=== PATIENT | female | born 1940 | race Caucasian/White ===

== ENCOUNTER 2019-07-03 18:12 | Emergency (ER) | payer OTHER, BC ==
[~2019-07-03] VITALS: Ht 167.6 cm; Wt 89.8 kg
--- NOTE | ~2019-07-03 | EKG ---
[place] [address] [facility] [place] [address] ELECTROCARDIOGRAM REPORT Name: TACO RED Room #: [facility].#: [id number] Admission: Attend Phys: Discharge: Date of : 40 Report #: [id number] THIS REPORT FOR: //name// [facility] ED Test Date: 2019-07-03 Test Time: 18:18:55 Pat Name: TACOJt RED Department: Room: Gender: F Packaging Associate: RONAK : 1940 Requested By: Ivan Morales Order Number: [id number] MD: Measurements Intervals [place] Rate: 98 P: 30 PA: 199 QRS: 6 QRSD: 94 T: -58 QT: 338 QTc: 432 Interpretive Statements Sinus rhythm Anterior infarct, old Minimal ST depression, lateral leads Compared to ECG 12/13/2014 11:25:35 ST (T wave) deviation now present Left ventricular hypertrophy no longer present Myocardial infarct finding still present [email or web address] By: 1818 1818 Epiphany Epiphany, /EPI
[~2019-07-03 18:12] MED LIST: ACTOS 45 MG45 M1 PO; ASPIRIN325 PO; BENTYL 10 MG CA10 MG PO; DIABETA 5MG TABL5 MG PO; DIAZEPAM 5 MG5 M1 PO; DIOVAN HCT 1601 EAC1 PO; FELODIPINE ER10 MG PO; HUMALOG100 UNIT/1 SUBQ; HYDROCODONE-AP1 EAC6 PO; KEFLEX500 MG PO; LANTUS SC; LIPITOR20 MG PO; MEDROLDOSEPACK PO; MIRALAX17 GM PO; MULTIVITAMINS PO; NORCO 5-325 TA1 EACH PO; PLAVIX 75 MG TA75 MG PO; PLENDIL10 MG PO; PREDNISONE 10 M10 MG PO; PREDNISONE 20 M20 MG PO; PREDNISONE50 MG PO; REQUIP OR; REQUIP5 MG PO; ROPINIROLE HCL2 M1 PO; TRAMADOL HCL200 MG PO; TYLENOL325 MG PO; WELLBUTRIN SR150 MG PO; ZETIA10 MG PO
[2019-07-03] MEDS ORDERED: VASCEPA1 GM PO (18:24)
[2019-07-03] MEDS ORDERED: BUPROPION HCL100 MG PO (18:24)
[2019-07-03] MEDS ORDERED: NORVASC 2.5 MG2.5 M1 PO (18:25)
[2019-07-03] MEDS ORDERED: ROPINIROLE HCL4 MG PO (18:26)
[2019-07-03] MEDS ORDERED: BENTYL 10 MG CA10 MG PO (18:28)
[2019-07-03] MEDS ORDERED: LISINOPRIL2.5 MG PO (18:30)
[2019-07-03 19:10] LABS: ABSOLUTE NEUTROPHILS 7.1 thou/uL (1.4-8.2); BASOPHILS 1.4 % (0.0-2.0); HEMATOCRIT 42.8 % (37.0-47.0); LYMPHOCYTES 21.2 % (24.0-44.0); MCH 30.1 pg (26.0-34.0); MCHC 32.6 g/dL (28.0-37.0); MCV 92.2 fL (80.0-100.0); MONOCYTES 5.7 % (1.0-8.0); PLATELET COUNT 272 thou/uL (150-400); POLYS 66.7 % (36.0-66.0); RBC 4.65 mil/uL (4.20-5.00); RDW 13.9 % (10.5-14.5); WBC 10.7 thou/uL (4.0-11.0)
[2019-07-03 19:46] LABS: ANION GAP 13 mmol/L (7-16); BUN 16 mg/dL (7-18); CALCIUM 9.5 mg/dL (8.5-10.1); CHLORIDE 99 mmol/L (98-107); CO2 24 mmol/L (21-32); CREATININE 1.1 mg/dL (0.6-1.0); GLUCOSE 257 mg/dL (74-106); POTASSIUM 4.2 mmol/L (3.5-5.1); SODIUM 136 mmol/L (136-145)
[2019-07-03 19:56] LABS: ALBUMIN 3.9 g/dL (3.4-5.0); SGOT 23 U/L (15-37); SGPT 13 U/L (30-65); TOTAL BILIRUBIN 0.5 mg/dL (<0.1-1.0); TOTAL PROTEIN 8.2 g/dL (6.4-8.2); TROPONIN-I <0.06 ng/mL (<0.06)
[2019-07-03] MEDS ORDERED: LIDOCAINE PAIN1 EACH TRANSDERM (20:06)
[2019-07-03 20:18] VITALS: BP 149/71
--- NOTE | 2019-07-06 07:37 | EKG ---
[place] [address] [employer] [facility] [place] [place] [address] ELECTROCARDIOGRAM REPORT Name: MELISSALOCOTACO Fuentes Room #: [facility]#: [id number] Admission: 07/03/19 Attend Phys: Discharge: 07/03/19 Date of : 40 Report #: [id number] THIS REPORT FOR: //name// [facility] ED Test Date: 2019-07-03 Test Time: 18:18:16 Pat Name: TACO RED Department: Room: Gender: F Pond Supervisor: RONAK : 1940 Requested By: Ivan Morales Order Number: [id number] MD: Ariel Gotti Measurements Intervals [place] Rate: 102 P: 0 MO: 150 QRS: 19 QRSD: 140 T: 109 QT: 482 QTc: 629 Interpretive Statements Sinus tachycardia Poor R wave progression Compared to ECG 12/13/2014 11:25:35 Heart rate has increased Electronically Signed On 07-06-2019 7:37:33 TECHNICIAN SEMICONDUCTOR DEVELOPMENT by Ariel Gotti [email or web address] <ELECTRONICALLY SIGNED> By: Ariel Gotti MD, [facility] 07/06/19 0737 1818 17 Ariel Gotti MD, FACC /EPI
--- NOTE | 2019-07-06 07:38 | EKG ---
[place] [address] [facility] [place] [address] ELECTROCARDIOGRAM REPORT Name: MELISSALOCOTACO Fuentes Room #: [facility]#: [id number] Admission: 07/03/19 Attend Phys: Discharge: 07/03/19 Date of : 40 Report #: [id number] THIS REPORT FOR: //name// [facility] ED Test Date: 2019-07-03 Test Time: 18:18:55 Pat Name: TACO RED Department: Room: Gender: F Wildlife Biologist: RONAK : 1940 Requested By: Ivan Morales Order Number: [id number] MD: Ariel Gotti Measurements Intervals [place] Rate: 98 P: 30 NM: 199 QRS: 6 QRSD: 94 T: -58 QT: 338 QTc: 432 Interpretive Statements Sinus rhythm Poor R wave progression Nonspecific ST and T wave abnormality Compared to ECG 12/13/2014 11:25:35 No significant change was found Electronically Signed On 07-06-2019 7:38:04 FAMILY RESOURCE MANAGEMENT PROFESSOR by Ariel Gotti [email or web address] <ELECTRONICALLY SIGNED> By: Ariel Gotti MD, [facility] 07/06/19 0738 17 17 Arile Gotti MD, [facility] /EPI
== END 2019-07-03 20:20 | disposition home or self-care (01) ==
LOC: ER 18:12
PROVIDERS: Physician Assistant
DX: R07.81 Pleurodynia (principal); I10 Essential (primary) hypertension; E11.40 Type 2 diabetes mellitus with diabetic neuropathy, unspecified; E78.00 Pure hypercholesterolemia, unspecified; K21.9 Gastro-esophageal reflux disease without esophagitis; F41.9 Anxiety disorder, unspecified; F32.9 Major depressive disorder, single episode, unspecified; Z79.4 Long term (current) use of insulin; Z91.041 Radiographic dye allergy status; Z88.1 Allergy status to other antibiotic agents; Z88.8 Allergy status to other drugs, medicaments and biological substances

== ENCOUNTER 2019-08-01 12:54 | Emergency (ER) | payer OTHER, BC ==
[~2019-08-01] VITALS: Ht 167.6 cm; Wt 90.7 kg
[~2019-08-01 12:54] MED LIST changes: +BUPROPION HCL100 MG PO; +LIDOCAINE PAIN1 EACH TRANSDERM; +LISINOPRIL2.5 MG PO; +NORVASC 2.5 MG2.5 M1 PO; +ROPINIROLE HCL4 MG PO; +VASCEPA1 GM PO
[2019-08-01 15:08] LABS: ABSOLUTE NEUTROPHILS 5.3 thou/uL (1.4-8.2); BASOPHILS 1.1 % (0.0-2.0); EOSINOPHILS 1.3 % (0.0-3.0); HEMATOCRIT 44.8 % (37.0-47.0); HEMOGLOBIN 14.8 gm/dL (12.0-15.0); LYMPHOCYTES 31.1 % (24.0-44.0); MCH 30.5 pg (26.0-34.0); MCHC 33.1 g/dL (28.0-37.0); MCV 92.1 fL (80.0-100.0); MONOCYTES 5.9 % (1.0-8.0); PLATELET COUNT 265 thou/uL (150-400); POLYS 60.6 % (36.0-66.0); RBC 4.86 mil/uL (4.20-5.00); RDW 13.8 % (10.5-14.5); WBC 8.7 thou/uL (4.0-11.0)
[2019-08-01 15:11] LABS: URINE BILIRUBIN NEGATIVE (Negative); URINE BLOOD 1+ (Negative); URINE COLOR YELLOW; URINE GLUCOSE-RANDOM* NEGATIVE (Negative); URINE KETONES NEGATIVE (Negative); URINE LEUKOCYTES-REFLEX 2+ (Negative); URINE NITRITE-REFLEX NEGATIVE (Negative); URINE PROTEIN (DIPSTICK) 2+ (Negative); URINE SPECIFIC GRAVITY >= 1.030 (1.005-1.035); URINE UROBILINOGEN 0.2 E.U./dl (0.2-1.0)
[2019-08-01 15:12] LABS: URINE CLARITY HAZY
[2019-08-01 15:14] LABS: CALCIUM 10.1 mg/dL (8.5-10.1); CREATININE 1.2 mg/dL (0.6-1.0); POTASSIUM 3.7 mmol/L (3.5-5.1)
[2019-08-01 15:19] LABS: ALBUMIN 4.6 g/dL (3.4-5.0); TOTAL BILIRUBIN 0.9 mg/dL (<0.1-1.0); TOTAL PROTEIN 9.5 g/dL (6.4-8.2)
[2019-08-01 15:24] LABS: CASTS None Seen /LPF (None Seen); SQUAMOUS >10 Many /LPF (0-3)
[2019-08-01 15:25] LABS: BACTERIA-REFLEX >30 Many /HPF (None Seen); CRYSTALS None Seen /LPF (None Seen); MUCUS 4-6 Moderate strn/LPF (None Seen); URINE RBC 0-2 Rare /HPF (0-2); URINE WBC-REFLEX >25 Many /HPF (0-5)
[2019-08-01 15:26] LABS: WBC CLUMPS Moderate (None Seen)
[2019-08-01] MEDS ORDERED: KEFLEX500 M1 PO (15:54)
[2019-08-01 16:32] VITALS: BP 184/75
== END 2019-08-01 16:30 | disposition home or self-care (01) ==
LOC: ER 12:54
PROVIDERS: Physician Assistant
DX: N39.0 Urinary tract infection, site not specified (principal); I10 Essential (primary) hypertension; E11.42 Type 2 diabetes mellitus with diabetic polyneuropathy; E78.00 Pure hypercholesterolemia, unspecified; E66.9 Obesity, unspecified; K21.9 Gastro-esophageal reflux disease without esophagitis; F41.9 Anxiety disorder, unspecified; F32.9 Major depressive disorder, single episode, unspecified; Z68.32 Body mass index [BMI] 32.0-32.9, adult; Z79.4 Long term (current) use of insulin; Z88.1 Allergy status to other antibiotic agents; Z88.8 Allergy status to other drugs, medicaments and biological substances

== ENCOUNTER 2020-09-29 14:02 | Inpatient (IN) | payer OTHER, BC ==
[2020-09-29] VITALS (20 sets, daily range): BP systolic 155–217; BP diastolic 66–93
[~2020-09-29] VITALS: Ht 167.6 cm; Wt 73.1 kg
[~2020-09-29 14:02] MED LIST changes: +KEFLEX500 M1 PO
[2020-09-29 14:30] LABS: ABSOLUTE NEUTROPHILS 7.9 thou/uL (1.4-8.2); BASOPHILS 0.9 % (0.0-2.0); EOSINOPHILS 0.1 % (0.0-3.0); HEMATOCRIT 43.5 % (37.0-47.0); HEMOGLOBIN 13.9 gm/dL (12.0-15.0); LYMPHOCYTES 11.9 % (24.0-44.0); MCH 29.4 pg (26.0-34.0); MCHC 32.1 g/dL (28.0-37.0); MCV 91.6 fL (80.0-100.0); MONOCYTES 7.5 % (1.0-8.0); PLATELET COUNT 179 thou/uL (150-400); POLYS 79.6 % (36.0-66.0); RBC 4.75 mil/uL (4.20-5.00); RDW 15.6 % (10.5-14.5)
[2020-09-29 14:38] LABS: CALCIUM 10.1 mg/dL (8.5-10.1); CREATININE 1.3 mg/dL (0.6-1.0); POTASSIUM 3.4 mmol/L (3.5-5.1)
[2020-09-29 14:44] LABS: APTT 28.2 Seconds (24.5-32.8); PROTIME 10.8 Seconds (9.3-11.4)
[2020-09-29 14:48] LABS: TOTAL BILIRUBIN 0.8 mg/dL (0.2-1.0); TOTAL PROTEIN 8.1 g/dL (6.4-8.2)
[2020-09-29 14:50] LABS: TROPONIN-I 2.38 ng/mL (<0.06)
[2020-09-29 15:34] LABS: URINE BILIRUBIN NEGATIVE (Negative); URINE BLOOD 3+ (Negative); URINE CLARITY CLEAR; URINE COLOR YELLOW; URINE GLUCOSE-RANDOM* 3+ (Negative); URINE KETONES NEGATIVE (Negative); URINE LEUKOCYTES-REFLEX 1+ (Negative); URINE NITRITE-REFLEX POSITIVE (Negative); URINE PROTEIN (DIPSTICK) 2+ (Negative); URINE SPECIFIC GRAVITY <= 1.005 (1.005-1.035); URINE UROBILINOGEN 0.2 E.U./dl (0.2-1.0)
[2020-09-29 15:44] LABS: CASTS None Seen /LPF (None Seen); URINE WBC-REFLEX >25 Many /HPF (0-5)
[2020-09-29 15:45] LABS: BACTERIA-REFLEX >30 Many /HPF (None Seen); CRYSTALS None Seen /LPF (None Seen); URINE RBC None Seen /HPF (0-2)
[2020-09-29 15:46] LABS: YEAST-REFLEX Present (None Seen)
[2020-09-29 15:47] LABS: SQUAMOUS 4-10 Moderate /LPF (0-3)
[2020-09-29 15:53] LABS: BE(vivo) 0.6 mmol/L (-2 to +3); HCO3 26.4 mmol/L (22.0-26.0); PCO2 VENOUS 47.1 mmHg (41.0-51.0); PO2 VENOUS 37.2 mmHg (35.0-45.0)
[2020-09-29 16:56] LABS: CHOLESTEROL 315 mg/dL (<200); HDL CHOLESTEROL 43 mg/dL (>40); LDL CHOLESTEROL 218 mg/dL (<100); TC:HDL 7.3 Ratio (Not establshd); TRIGLYCERIDE 274 mg/dL (<150); VLDL 55 mg/dL (<40)
[2020-09-29] MEDS ORDERED: LISINOPRIL20 MG PO (16:56)
[2020-09-29] MEDS ORDERED: DIAZEPAM 5 MG5 M1 PO (16:57)
[2020-09-29] MEDS ORDERED: LANTUS SOL100 UNIT/1 SUBQ (16:58)
[2020-09-29 17:02] LABS: SERUM ASSESSMENT Clear
--- NOTE | 2020-09-29 19:55 | NUR ---
ATTEMPTED TO CALL REPORT, NURSE IN ICU UNAVAILABLE CURRENTLY PASSING MEDS TO PT AND WILL CALL BACK.
[2020-09-30] VITALS (95 sets, daily range): BP systolic 111–186; BP diastolic 49–81
--- NOTE | 2020-09-30 07:06 | EKG ---
[address] [address] ELECTROCARDIOGRAM REPORT Name: MELISSALOCOTACO Fuentes Room #: 240-[facility] IN M.R.#: [id number] Admission: 09/29/20 Attend Phys: Neo Snell Discharge: Date of : 40 Report #: [id number] [facility] ED Test Date: 2020-09-29 Test Time: 15:06:20 Pat Name: TACO RED Department: Room: 240 Gender: F Rack Maker: : 1940 Requested By: Senthil Metzger Order Number: [id number] MD: Alex Ayala Measurements Intervals [place] Rate: 89 P: 98 [place]: 179 QRS: 17 QRSD: 118 T: -18 QT: 392 QTc: 477 Interpretive Statements Sinus rhythm Nonspecific intraventricular conduction delay Inferior infarct, age indeterminate Anterior infarct, old Compared to ECG 07/03/2019 18:18:55 Intraventricular conduction delay now present Myocardial infarct finding now present Poor R-wave progression no longer present ST (T wave) deviation no longer present Electronically Signed On 09-30-2020 7:06:10 CASING TIER by Alex Ayala [email or web address] <ELECTRONICALLY SIGNED> By: Alex Ayala MD, FACC 09/30/20 0706 1506 1506 Alex Ayala MD, [facility] /EPI
--- NOTE | 2020-09-30 10:08 | NUR ---
ASSUMED CARE AT 0700. SPOKE WITH PATIENT'S SON, GABRIELA, OVER THE PHONE FROM [phone] AND HE WAS UPDATED AND EDUCATED ON THE PATIENT'S CONDITION AND PLAN OF CARE.
--- NOTE | 2020-09-30 10:33 | 2DMMODE ---
[facility] [address] [place] [address] 2 D/M-MODE ECHOCARDIOGRAM Name: TEOFILOTACO Fuentes Room #: 240-P ADM IN M.R.#: [id number] Admission: 09/29/20 Attend Phys: Neo Snell Discharge: Date of : 40 Report #: [id number] THIS REPORT FOR: cc: Javier Miranda MD, Stany A. MD Santiago, Patrick MD LOCATED WITHIN [facility] ~ APPROVED REPORT Study performed: 09/30/2020 09:39:20 EXAM: Comprehensive 2D, Doppler, and color-flow Echocardiogram Patient Location: ICU Room #: 240 Status: routine BSA: 1.79 HR: 81 bpm BP: 157/59 mmHg Rhythm: NSR Other Information Study Quality: Good Indications CVA/TIA Diabetes Elevated Troponin Hypertension/HDD Echo Enhancing Agent Indication: Rule out Shunt Agent(s) / Amount(s) Used: Agitated Saline 7 cc 2D Dimensions RVDd: 28.10 mm IVSd: 12.65 (7-11mm) LVOT Diam: 19.71 (18-24mm) LVDd: 38.84 mm PWd: 14.98 (7-11mm) Ascending Ao: 28.73 (22-36mm) LVDs: 27.57 (25-40mm) Aortic Root: 33.17 mm IVC: 16.00 mm Volumes Left Atrial Volume (Systole) Single Plane 4CH: 71.94 mL Single Plane 2CH: 69.90 mL LA ESV Index: 44.00 mL/m2 [facility] [place] [address] [place] [address] 2 D/M-MODE ECHOCARDIOGRAM Name: TACO RED Room #: 240-[facility] ..#: [id number] Admission: 09/29/20 Attend Phys: Neo Marte Discharge: Date of : 40 Report #: [id number] Aortic Valve AoV Peak Sal.: 1.40 m/s AO Peak Gr.: 7.89 mmHg LVOT Max P.41 mmHg LVOT Max V: 1.05 m/s ALEXANDRE Vmax: 2.28 cm2 Mitral Valve E/A Ratio: 0.4 MV Decel. Time: 366.32 ms MV E Max Sal.: 0.58 m/s MV A Sal.: 1.30 m/s MV PHT: 106.23 ms IVRT: 147.64 ms Pulmonary Valve PV Peak Sal.: 0.87 m/s PV Peak Gr.: 3.03 mmHg Pulmonary Vein P Vein S: 0.53 m/s P Vein A: 0.23 m/s P Vein D: 0.30 m/s P Vein A Dur.: 92.3 msec P Vein S/D Ratio: 1.77 Left Ventricle The left ventricle is normal size. There is normal LV segmental wall motion. Mild concentric left ventricular hypertrophy. Left ventricular systolic function is normal. The left ventricular ejection fraction is within the normal range. LVEF is 55-60%. Grade I - abnormal relaxation pattern. Right Ventricle The right ventricle is normal size. The right ventricular systolic function is normal. Atria Left atrium is dilated. Interatrial septum is intact without evidence of ASD or PFO. Right atrium is at the upper limits of normal. Aortic Valve The aortic valve is normal in structure. No aortic regurgitation is present. There is no aortic valvular stenosis. Mitral Valve The mitral valve is normal in structure. There is no mitral valve regurgitation noted. No evidence of mitral valve stenosis. [facility] [address] [place] [address] 2 D/M-MODE ECHOCARDIOGRAM Name: TACO RED Room #: 240-P [facility] ..#: [id number] Admission: 09/29/20 Attend Phys: Neo Marte Discharge: Date of : 40 Report #: [id number] Tricuspid Valve The tricuspid valve is normal in structure. There is no tricuspid valve regurgitation noted. Pulmonic Valve The pulmonary valve is normal in structure. There is no pulmonic valvular regurgitation. Great Vessels The aortic root is normal in size. IVC is normal in size and collapses >50% with inspiration. Pericardium There is no pericardial effusion. <Conclusion> Normal left ventricular size with mild concentric hypertrophy Ejection fraction 55% Grade 1 diastolic dysfunction Normal right ventricular size/function Mild left atrial enlargement Color-flow Doppler study was performed of the aortic/mitral/tricuspid/pulmonary valve Mild aortic valve calcification without stenosis. Normal mitral valve structure and function No evidence of tricuspid valve insufficiency No pericardial effusion <ELECTRONICALLY SIGNED> By: Alex Ayala MD, FACC 09/30/20 1033 1033 1033 Alex Ayala MD, FACC /INF
--- NOTE | 2020-09-30 14:13 | NUR ---
INITIAL ASSESSMENT: ARASH reviewed chart and spoke with nursing. Pt was admitted from home due to acute CVA. Neuro consulted. MRI/MRA completed earlier today. ID and CTS also consulted. Pt is on 2L of O2. COVID test on 09/29 was negative. PT/OT/ST have all evaluated pt. Pt is on a mechanical soft diet with nectar thickened liquids. [facility] consulted to evaluate pt for admission to in acute rehab. ARASH spoke with pt's son, Terrence, via phone. Introduced role of SW. Pt is normally alert/orientated x 4 and lives at home alone. 3 steps to enter the home and 12 steps inside. Prior to admission, pt was using a quad cane when out of the house. Pt has been independent with ADLs. Pt's spouse recently in a custodial. Pt and family were unable to visit pt prior to his passing. Pt's son states that pt is adamant about not going into a nursing facility. SW discussed rehab and explained admission criteria. Pt's son states that [facility] would be their preference. Pt will be moving in with Terrence and his family, who live in [place], upon discharge. Terrence is working on building a ramp into his home. Pt will have 24 hour care provided when she returns home by family members. No hx of services or post-acute placement. Pt's PCP is Dr. Javier Lagunas. Pt's son states he would like for pt to be provided with info on Advanced Directives. SW explained documents that are provided to pts at [facility]. Pt's son verbalized understanding. ARASH discussed case with N vocational rehabilitation specialist and 5N ELECTROGALVANIZING MACHINE OPERATOR. Pt appears to be a great candidate for . [facility] is able to accept pt over the weekend if she is ready. 5[facility] will need repeat COVID test prior to admission. Test to be ordered to be completed on Saturday, 10/02. ARASH updated attending physiican. SW is following to assist as needed with discharge planning.
--- NOTE | 2020-09-30 16:31 | NUR ---
PATIENT SEEN FOR REHAB CONSULATION BY LAMAR BARKLEY NP WITH DR. WELCH. PATIENT IS AN ACUTE REHAB CANDIDATE AND CAN COME TO [facility] WHEN MEDICALLY STABLE. WILL CONTINUE TO FOLLOW. VEGETABLE FARMWORKER CONTACT NUMBER FOR WEEKEND IS [phone].
--- NOTE | 2020-09-30 22:13 | NUR ---
PATIENT REMAINS A/O. DENIES SOA, WEAKNESS, PAIN. AFEBRILE. VSS. PATIENT HAS TX ORDERS. REPORT CALLED TO 3W RN. PATIENT OFF THE UNIT AT APPROX 2145. ON THE MINITOR FOR TX AND O2 VIA NC. PATIENT BELONGINGS TAKEN WITH THE PATIENT TO ROOM 362. FAMILY UPDATED. ALL QUESTIONS ANSWERED.
--- NOTE | 2020-10-01 00:22 | NUR ---
PT TRANSFERRED FROM ICU. NC INTACT. FEMALE EXT CAHT INTACT. PALE SKIN TONE. BED ALARM ON. PT ORIENTED TO SELF AND SITUATION, NOT TIME. PT ABLE TO LIFT BUE WITH NO DRIFT, RLE DRIFT WITH ELEVATION. PT IS CONFUSED AND WAS READING SENTENCES THAT WERE NOT PRESENT ON THE PAPER PROVIDED. PT ALSO MOVED THE PAPER TO HER RIGHT SIDE TO READ THE WORDS SWALLOWING PRECAUTIONS. PT NOT ABLE TO IDENTIFY A CELL PHONE OR KLEENEX. PT ABLE TO FOLLOW FINGER IN VISION FIELD AND DENIED AREAS OF LIMITED VISION. PT DOES WEAR GLASSES.
[2020-10-01 03:35] VITALS: BP 156/70
[2020-10-01 07:22] VITALS: BP 146/71
[2020-10-01 11:29] VITALS: BP 144/69
[2020-10-01 15:18] VITALS: BP 166/76
--- NOTE | 2020-10-01 18:59 | NUR ---
PATIENT HAS SLEPT THROUGH THE DAY. NEW DRESSING TO RIGHT UPPER ARM. NO COMPLAIN OF PAIN. WILL CONT WITH PLAN OF CARE.
[2020-10-01 19:55] VITALS: BP 152/63
--- NOTE | 2020-10-01 23:06 | NUR ---
PT RESTING IN BED, REPOSITIONING SELF DIAGONAL IN BED FREQUENTLY. O2 PER NC. PURWICK INTACT. NOTED DECREASE IN STRENGTH IN RUE WHEN TURNING ON SIDE. HX OF R SIDE WEAKNESS FROM PREVIOUS CVA. PT DISCUSSED THAT SHE IS GOING TO LIVE WITH HER SON ON HIS 5 ACRE HOME. PT STATED HER DAUGHTER LAST YEAR FROM LIVER CANCER. SHE DISCUSSED IN DETAIL HER DAUGHTERS CHEMOTHERAPY STRUGGLES AND GRANDCHILDREN AND SADNESS AND ANGER WITH GOD THAT HE TOOK HER DAUGHTER VERSUS THE PT. PT REPORTED HER SIBLINGS ALL HAD A HISTORY OF HAVING CANCER. PALE SKIN TONE. BARRIER CREAM TO COCCYX, R SHOULDER DRESSING INTACT.
[2020-10-02 04:41] VITALS: BP 151/65
[2020-10-02 07:02] LABS: CALCIUM 9.2 mg/dL (8.5-10.1); CREATININE 0.8 mg/dL (0.6-1.0)
[2020-10-02 07:54] VITALS: BP 141/62
[2020-10-02 11:37] VITALS: BP 166/65
[2020-10-02 16:16] VITALS: BP 142/55
--- NOTE | 2020-10-02 17:50 | NUR ---
PATIENT NOW SLEEPING AND RESPIRATIONS ARE NON LABORED. SHE DOES NOT SEEM TO BE IN PAIN. SHE CONT ASK TO DRINK THIN FLUIDS. SPEECH WILL REEVALUATE HER TOMORROW ADUST DIET ACCORDINGLY. WILL CONT WITH PLAN OF CARE.
[2020-10-02 19:36] VITALS: BP 160/68
--- NOTE | 2020-10-03 00:06 | NUR ---
TOOK OVER CARE 2305, PT ASLEEP IN BED. O2 PER NC AND PURWICK INTACT. BED ALARM ON.
[2020-10-03 04:26] VITALS: BP 158/63
[2020-10-03 07:41] VITALS: BP 162/73
--- NOTE | 2020-10-03 07:41 | HC ---
[facility] [place] [address] CONSULTATION Name: TACO RED Fuentes Room #: 362-P ADM IN M.R.#: [id number] Admission: 09/29/20 Attend Phys: Neo Snell Discharge: Date of : 40 Report #: [id number] THIS REPORT FOR: cc: Javier Miranda MD, Stany A. MD Barry, Joseph W. MD ~ DATE OF SERVICE: 09/30/2020 INFECTIOUS DISEASE CONSULTATION ATTENDING PHYSICIAN: Dr. Snell. REASON FOR EVALUATION: Gram-negative septicemia, complicated urinary tract infection, presentation with a stroke. HISTORY OF SUBJECTIVE: Chart reviewed, patient examined. This is 80-year-old, apparently with history of depression, presented to the Emergency Room with progressive weakness in the last 48 hours. She noted her blood sugars have been high. She is known to be diabetic with a concomitant polyuria as well as polydipsia. She notes some mild slurring of her speech and is notable she had previous strokes. Evaluation was undertaken. Imaging of the head suggested new stroke, elevated CPK. Urinalysis did show marked pyuria and bacteriuria and urine culture with growth of greater than 10 to the 5th gram-negative rods in 1 out of 2 blood cultures, there is gram-negative rods as well. She is not aware of any fevers or chills. Appetite has been somewhat diminished. Denies significant pulmonary-related complaints, although she is on supportive oxygen per nasal cannula at 2 liters. Chest x-ray showed no acute process. COVID-19 test was negative. Hemoglobin A1c was 14. ALLERGIES: IODINE, CEPHALEXIN, WHICH CAUSES DIZZY AND NAUSEA, PRAMIPEXOLE, INSULIN DETEMIR. CURRENT MEDICATIONS: Include lisinopril, clopidogrel, insulin lispro, atorvastatin, famotidine. PAST MEDICAL HISTORY: As described above, diabetes mellitus complicated by vasculopathy, known coronary artery disease, [place], history of strokes, also has history of hypertension, hyperlipidemia, reflux, peripheral neuropathy. SOCIAL HISTORY: No ethanol or tobacco use. FAMILY HISTORY: Noncontributory. REVIEW OF SYSTEMS: Otherwise, unremarkable. [facility] [address] [place] [address] CONSULTATION Name: TEOFILOTACO L Room #: 362-P [facility] IN ..#: [id number] Admission: 09/29/20 Attend Phys: Neo Snell Discharge: Date of : 40 Report #: [id number] PHYSICAL EXAMINATION: GENERAL: She appears somewhat chronically ill and undernourished, is pleasant, cooperative, perhaps mildly encephalopathic. VITAL SIGNS: Temperature 98, pulse 77, respirations 22, blood pressure 166/63. SKIN: Warm, dry, no rashes. HEENT: Otherwise unremarkable. Normocephalic. Extraocular muscles intact. NECK: Supple. LUNGS: Diminished breath sounds, generally clear. HEART: Regular. I do not appreciate a murmur. ABDOMEN: Soft, nontender, nondistended. EXTREMITIES: Moves all 4. GENITOURINARY AND RECTAL: Deferred. LABORATORY DATA: MRSA screening PCR was negative. Urine cultures described above, greater than 10 to the 5th gram-negative rods, awaiting ID and susceptibility. MRI of the head, acute CVA identified with multiple focal areas of preston matter, right temporoparietal region. Small focus in the right cerebellum, some mild cerebral and cerebellar volume loss. Hemoglobin A1c of 14. Blood culture 1 out of 2 with growth gram-negative rods. Screening COVID-19 rapid PCR was negative. Chest x-ray, no acute process. TSH 1.544. BNP elevated at 4452. Lactic acid 1.6. CPK elevated at 338. ASSESSMENT AND PLAN: Gram-negative septicemia, likely genitourinary tract source. We will initiate coverage for presumed perhaps more resistant organism. At this point, she is not in overt septic shock. She does remain tenuous. Continue to monitor expectantly. We will add incentive spirometry as well with physical therapy as already initiated protocol. <ELECTRONICALLY SIGNED> By: Francisco Joy MD 10/03/20 0741 1159 1257 Francisco Joy MD /nt
--- NOTE | 2020-10-03 10:44 | HC ---
[address] [address] CONSULTATION Name: TACO RED Room #: 362-P ADM IN M.R.#: [id number] Admission: 09/29/20 Attend Phys: Neo Snell Discharge: Date of : 40 Report #: [id number] THIS REPORT FOR: cc: Javier Miranda MD, Stany A. MD Khosla, Parveen K. MD ~ DATE OF SERVICE: 09/29/2020 HISTORY OF PRESENT ILLNESS: This is an 80-year-old female patient who was evaluated by me because of stroke. The patient provided some history. I had numerous conversations with the Emergency Room physician. The patient's [id number]-jj-axe is here, she provided some history. The patient gives a history that her in December of last year, she became depressed. She is a diabetic and hypertensive. She was taking medications for that and the symptoms were reasonably controlled. She stopped taking her medications for diabetes and hypertension because she wanted to be [address] [address] CONSULTATION Name: TACO RED Room #: 362-P ADM IN M.R.#: [id number] Admission: 09/29/20 Attend Phys: Neo Snell Discharge: Date of : 40 Report #: [id number] with her . She came with hypertensive crisis as well as diabetic ketoacidosis. Speech was found to be slurred and pretty extensive workup was done by Emergency Room physician, as I understand. He did a CT of the head first and subsequently he did a CT angiogram and perfusion. After these studies were done and the results came back, he admitted the patient to Dr. Snell and after that I was called for a Neurology consult. I was first in [place] and I talked to him on the phone and he read me the patient's report, and I suggested calling an interventionalist to see if this patient is any intervention candidate because the report appeared to be confusing and complicating. Subsequently, I came and saw this patient and reviewed the patient's records and talked to the patient's xlmoshpe-ei-tsp and the patient herself. It looks like the symptoms are going on for a few days. Her blood sugar has been very high and her blood pressure has been very high. She apparently fell, but did not hit any head. As far as speech difficulty is concerned, apparently, she has some speech difficulty but it may be worse, but the duration is unclear. It is several hours and maybe a few days. REVIEW OF SYSTEMS: A 14-point review of system was carried out and the patient has diabetes. She has hypertension and it is very uncontrolled. She also has a history of depression and anxiety. She does have a history of being on medications including Wellbutrin. She is already on Plavix as I understand. This was a relevant 14-point review of system, which was carried out. PAST MEDICAL HISTORY: Positive for depression. She used to smoke, but that was long time ago. FAMILY HISTORY: Unremarkable. SOCIAL HISTORY: She lives by herself, but has a son who is pretty supportive. She used to smoke, but has not smoked any for 20 years. PHYSICAL EXAMINATION: Indicate she is alert. She talks slowly, but she can talk. Her speech is slightly slurred but that, as I understand, is a baseline. Ultimately, she was able to tell me it is September, but did not know the date. She knew what hospital it is in and ultimately when I asked her who the president is, she was able to say Biden but it took her some time. Cranial nerve examination 2-12 demonstrated dense left hemianopsia. She does appear to have a slight facial weakness on the left side and she also appeared to have slight weakness in the left upper and left lower extremities. She took a long time to do position sense on both sides. Her reflexes were diminished and she took a long time to do the cerebellar sign. I could not look at the patient's fundus. Cardiac examinations appear unremarkable. Pulses are difficult to feel. Last blood pressure is 175/71, respirations 20, pulse is 97, temperature is 98.6. Her glucose was 473 and her troponin is high. That is being addressed by other consultants. [address] [address] CONSULTATION Name: TEOFILOTACO Fuentes Room #: 362-P ADM IN M.R.#: [id number] Admission: 09/29/20 Attend Phys: Neo Snell Discharge: Date of : 40 Report #: [id number] IMPRESSION AND PLAN: This patient has numerous medical problems. Her weakness and lethargy and change in behavior is most likely secondary to her uncontrolled diabetes, hypertension, diabetic ketoacidosis as I understand. That has nothing to do with the patient's finding on the CT angiogram or the CT scan. She does have occipital lobe stroke, but I cannot tell how old it is. She has pretty extensive disease and the ER doctor has already talked to the interventional radiologist and they do not think any intervention can be done in this patient. Those things need to be addressed including the right carotid stenosis, which is pretty significant. She also got some contrast. Her GFR is low. I will suggest fluids in this patient, which she may get anyway because of her diabetes. She is already on Plavix and I am not sure what can be done. I talked to the Emergency Room doctor and I am going to give a call to Dr. Snell, and I will suggest permissive hypertension for about 24 hours or so and keep her blood pressure around 170-180 systolic and do not lower the blood pressure, but her diabetes needs to be tightly controlled. I spent more than 50 minutes of time taking care of this patient today and majority was spent counseling and coordinating. <ELECTRONICALLY SIGNED> By: Aly Menjivar MD 10/03/20 1044 1825 185 Aly Menjivar MD /nt
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
--- NOTE | 2020-10-03 13:11 | NUR ---
DISCHARGE NOTE: ARASH reviewed chart and spoke with nursing and attending physician. Pt was transferred to 3 from ICU. Pt is medically stable to discharge to today. ARASH discussed with rehab director, who confirmed they are able to accept pt today. Awaiting COVID test results at this time. ARASH placed call to pt's room. No answer. ARASH spoke with pt's son, Terrence, via phone to provide update and notify of discharge plan. Terrence is aware and agreeable with plan. Rehab CM to follow and assist as needed with discharge planning.
[2020-10-03 15:24] VITALS: BP 143/55
[2020-10-03] MEDS ORDERED: LIPITOR40 MG PO (15:31)
[2020-10-03] MEDS ORDERED: LANTUS100 UNIT/M SUBQ (15:31)
[2020-10-03] MEDS ORDERED: NOVOLOG100 UNIT/1 SUBQ (15:31)
[2020-10-03] MEDS ORDERED: ROCEPHIN 11 GM/1001 IV (15:35)
--- NOTE | 2020-10-03 16:12 | NUR ---
ASSUMED CARE OF PT AT 0700. PT AOX3 IN NO ACUTE DISTRESS. REPORTS FEELING BETTER. WEANED OFF OXYGEN. UP W 1 ASSIST. DIET UPGRADED TO THIN LIQUIDS WITH NO STRAWS. WAITING FOR TRANSFER TO REHAB, COVID TEST PENDING. REPORT GIVEN TO REHAB NURSE RECEIVING PT. HENRIM.
--- NOTE | 2020-10-03 16:35 | NUR ---
PATIENT IS A CANDIDATE FOR ACUTE REHAB AND WILL ADMIT TO 5N THIS DATE. ATTEMPTED TO SEE PATIENT, BUT SHE WAS SLEEPING. LEFT BROCHURE WITH PATIENT'S NURSE TO SHARE WITH PATIENT. DIRECTOR INSTRUMENTATION SPOKE WITH PATIENT'S SON AND SHARED INFORMATION REGARDING REHAB AND EXPECTATIONS, VISITATION POLICY AND NEED TO BRING CLOTHING FOR REHAB STAY. LIST OF CLOTHING/ITEMS NEEDED SENT BY TEXT TO PATIENT'S SON, GABRIELA. GABRIELA TO BRING CLOTHING AFTER 3:30 10/04/20.
--- NOTE | 2020-10-04 09:37 | HC ---
[facility] [place] [address] CONSULTATION Name: TACO RED Fuentes Room #: 362-P [facility] IN .R.#: [id number] Admission: 09/29/20 Attend Phys: Neo Murphy Rosannamoraima Discharge: 10/03/20 Date of : 40 Report #: [id number] THIS REPORT FOR: cc: Javier Miranda MD, Stany A. MD Forman, John M. MD ~ DATE OF SERVICE: 09/30/2020 HISTORY OF PRESENT ILLNESS: We were asked to see the patient. The patient is an 80-year-old admitted with generalized weakness. The patient was brought to the Emergency Department on 09/29/2020. The patient has a history of hypertension, hyperlipidemia, diabetes mellitus. The patient was brought in by her son as he was worried about increased weakness, exhibiting itself over the prior 48 hours, in particular the patient had generalized fatigue and weakness. The patient reports having fallen in the bathroom and was trapped or unattended for4 hours. No specific motor or sensory dysfunction described. The patient was admitted for further evaluation. PAST MEDICAL HISTORY: As mentioned, diabetes, hypertension, dyslipidemia. The patient is status post left carotid endarterectomy. MEDICATIONS AT HOME: Includes acetaminophen, valsartan, hydrochlorothiazide, insulin, bupropion, ____, amlodipine, lisinopril, atorvastatin, tramadol, ropinirole, Plavix, Bentyl, vitamins. ALLERGIES: INSULIN DETEMIR CAUSES SWELLING AT INJECTION SITE; IODINE, RASH; CEPHALEXIN, NAUSEA AND DIZZINESS; PRAMIPEXOLE, NOT SURE OF THE REACTION. SOCIAL HISTORY: The patient states she smoked in her teenage years, but nothing since. The patient is and lives alone. REVIEW OF SYSTEMS: CONSTITUTIONAL: As mentioned, generalized weakness. No fever. EYES: No change in vision. HENT: Denies headache. Denies nasal discharge, sinus problems. RESPIRATORY: Denies cough, shortness of breath. CARDIAC: Denies chest pain, palpitations. GASTROINTESTINAL: Appetite is poor, but no nausea, vomiting, blood. GENITOURINARY: No urgency, frequency, blood. MUSCULOSKELETAL: The patient denies back pain, muscle pain. Does have right shoulder lateral right side of the neck pain. SKIN: Denies rash or infection. NEUROLOGIC: Denies focal motor or sensory dysfunction. The patient does admit to generalized weakness. PSYCHIATRIC: Denies anxiety or depression, but states her house does not feel [facility] [address] [place] [address] CONSULTATION Name: TACO RED Room #: 362-P [facility]#: [id number] Admission: 09/29/20 Attend Phys: Neo Snell Discharge: 10/03/20 Date of : 40 Report #: [id number] like home since her . PHYSICAL EXAMINATION: GENERAL: The patient is seen in the ICU. VITAL SIGNS: Temperature 36.7, heart rate 77, respiratory rate22, blood pressure 166/63, pulse ox 100 on 2 liters. HEENT: No scleral icterus, no arcus. Pupils are small bilaterally. NECK: I do not hear a bruit. CHEST: Clear. HEART: Rhythm regular. ABDOMEN: Soft. EXTREMITIES: No clubbing, cyanosis or edema, 2+ dorsalis pedis pulses. NEUROLOGIC: No motor or sensory dysfunction. MUSCULOSKELETAL: No bone or joint asymmetry or deformity. SKIN: No rash or infection. PSYCHIATRIC: Shows insight into problem and answers questions appropriately and is pleasant. We note that a CT angiogram was done and there appears to be some intracranial carotid lesion, but no cervical carotid stenosis was described. The left carotid is widely patent. The right internal carotid does appear to have some calcium with stenosis at its origin. ASSESSMENT: The patient appears to have some carotid artery disease on the right side. This was known to the patient. The symptoms do not appear to be specifically related to this. We note that the CT angiogram is read as showing an 80-90% distal right common carotid stenosis at the bulb. At this point, I think it would be reasonable to let the patient gain some strength. I see no urgency about recommending carotid surgery at this point as symptoms are of a more general nature. We will follow with you. Thank you for the consult. <ELECTRONICALLY SIGNED> By: Keith Cantu MD 10/04/20 0937 [id number] Keith Cantu MD /nt
== END 2020-10-03 17:29 | DRG 871 ==
LOC: ER 14:02 → ICU 16:37 → EROBS 16:37 → ICU 20:46 → 3W 09-30 21:46
PROVIDERS: Emergency Medicine; Specialist; ADMIT Hospitalist; ATTEND Hospitalist
DX: A41.50 Gram-negative sepsis, unspecified (principal); E11.10 Type 2 diabetes mellitus with ketoacidosis without coma; E43 Unspecified severe protein-calorie malnutrition; I21.4 Non-ST elevation (NSTEMI) myocardial infarction; I63.311 Cerebral infarction due to thrombosis of right middle cerebral artery; N12 Tubulo-interstitial nephritis, not specified as acute or chronic; I16.1 Hypertensive emergency; F32.9 Major depressive disorder, single episode, unspecified; F41.9 Anxiety disorder, unspecified; K21.9 Gastro-esophageal reflux disease without esophagitis; M19.90 Unspecified osteoarthritis, unspecified site; E78.00 Pure hypercholesterolemia, unspecified; E11.65 Type 2 diabetes mellitus with hyperglycemia; E11.42 Type 2 diabetes mellitus with diabetic polyneuropathy; Z20.822 Contact with and (suspected) exposure to COVID-19; Z79.01 Long term (current) use of anticoagulants; Z79.899 Other long term (current) drug therapy; Z79.4 Long term (current) use of insulin; Z88.8 Allergy status to other drugs, medicaments and biological substances; Z68.26 Body mass index [BMI] 26.0-26.9, adult
CPT/HCPCS: 10078; 10779; 10879

== ENCOUNTER 2020-10-03 11:54 | Inpatient (IN) | payer OTHER, BC ==
[~2020-10-03] VITALS: Ht 167.6 cm; Wt 73.0 kg
[~2020-10-03 11:54] MED LIST changes: +LANTUS SOL100 UNIT/1 SUBQ; +LISINOPRIL20 MG PO
[2020-10-03] MEDS ORDERED: LIPITOR40 MG PO (15:31)
[2020-10-03] MEDS ORDERED: LANTUS100 UNIT/M SUBQ (15:31)
[2020-10-03] MEDS ORDERED: NOVOLOG100 UNIT/1 SUBQ (15:31)
[2020-10-03] MEDS ORDERED: ROCEPHIN 11 GM/1001 IV (15:35)
--- NOTE | 2020-10-03 16:03 | NUR ---
chart review. She going to be dc to acute rehab today. cm tried to visit with tyrone x 2, unable to visit with her. noted she been living alone in house with 7 steps to enter, and 12 steps inside. recently her spouse at residential. uses quad cane outside the home. Son lorna is contact and going to get ramp at his home and have tyrone move in with his family so she will have assist at home. will cont following as needed for dc needs.
[2020-10-03 18:39] VITALS: BP 140/80
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
--- NOTE | 2020-10-03 19:35 | NUR ---
ADDENDUM TO ADMIT NOTE-UPON ARRIVAL TO UNIT IS NOTED TO HAVE 2 PERIPHERAL IV'S ONE IN RIGHT ANTICUBITAL NOTED TO HAVE LARGE AMOUNT RED DRAINAGE UNDER OPSITE AND PT STATES IT IS PAINFUL. REDDENED AND WARM TO TOUCH. REMOVED AND WET WASHCLOTH APPLIED-NOTED TO HAVE SMALL AMOUNT OF PURULENT DRAINAGE. LEFT FOREARM SALIUNE LOCK WRAPPED IN KERLEX AND NOT ASSESSED ON ADM IT-PT DENIES PAIN TO THIS SITE
[2020-10-03 20:10] VITALS: BP 158/68
--- NOTE | 2020-10-04 01:28 | NUR ---
assumed care approx 1900 evening 10/03. pt dozing off and on at change of shift however woke for hs meds. pt oriented x4, pleasant and cooperative. pt took hs meds with water tolerating well. pt assisted with turning and repositioning. bed alarm on and call light in reach. will continue to monitor.
[2020-10-04 05:30] LABS: HEMATOCRIT 36.1 % (37.0-47.0); HEMOGLOBIN 11.6 gm/dL (12.0-15.0); MCH 29.2 pg (26.0-34.0); MCV 91.1 fL (80.0-100.0); RBC 3.96 mil/uL (4.20-5.00); RDW 15.1 % (10.5-14.5)
[2020-10-04 05:45] LABS: CALCIUM 8.9 mg/dL (8.5-10.1); CREATININE 0.8 mg/dL (0.6-1.0)
[2020-10-04 07:44] VITALS: BP 137/59
[2020-10-04 12:00] LABS: FOLIC ACID 4.2 ng/mL (8.6-58.9)
--- NOTE | 2020-10-04 12:07 | NUR ---
PT ALERT AND ORIENTED TIMES FOUR. VSS. PT DENEIS PAIN/SOA AT THIS TIME. PT TOLERATES MEDS, BUT HAS REFUSED TO EAT MEALS ONLY WANTS YOGURT. PT HAS WORKED WELL WITH PT/OT AND IS UP SITTING IN THE CHAIR. WILL CONTINUE TO MONITOR.
--- NOTE | 2020-10-04 12:46 | NUR ---
team meeting, reccomendation: needs assist with set up for meals. diet mech soft ground with thin liquids, poor po intake. re team.
[2020-10-04 14:17] VITALS: BP 161/66
[2020-10-04 19:00] VITALS: BP 151/69
--- NOTE | 2020-10-05 02:11 | NUR ---
LARGE BM AT HS, TOLERATED Z-GUARD TO PINK BUTTOCKS AND VARIOUS SCRATCHES ON THEM. APPRECIATES US TURNING HER SIDE TO SIDE TO AVOID BREAKDOWN AND FEELS MORE COMFORTABLE SINCE LOW AIR LOSS PUMP APPLIED TO BED
[2020-10-05 07:29] VITALS: BP 146/62
[2020-10-05 09:38] VITALS: BP 134/97
--- NOTE | 2020-10-05 09:54 | NUR ---
ASSUMED CARE AT 0700. PATIENT IS ALERT AND ORIENTED, BUT FORGETFUL. PATIENT IS VERY SAD. PATIENT HAS RIGHT SIDED WEAKNESS. LUNGS ARE CLEAR AND DEMINISHED. ABD IS SOFT WITH BSX4. PATIENT IS INCONTINENT OF URINE. Z GUARD TO HER BOTTOM AND MICHEAL AREA. WOUND CARE TO RIGHT SHOULDER COMPLETED. FALL AND SAFETY PROTOCOLS IN PLACE. DENIES PAIN AT THIS TIME. PATIENT HAS LEFT FORARM S.L. PATIENT CONTINUES ON IV ABTS. PATIENT CONTINUES TO PROGRESS SLOWLY TOWARDS D/C GOALS. WILL CONTINUE TO MONITER.
--- NOTE | 2020-10-05 10:48 | NUR ---
PRIMARY CONTACT INFORMATION HAS BEEN UPDATED AND CALLED TO THE ADMITTING OFFICE. PATIENTS' SPOUSE EMILI HAS BEEN REMOVED HE IS . PATIENT'S SON GABRIELA RED IS THE DPOA, AND IS ALSO THE PRIMARY CONTACT. HIS PHONE NUMBER IS [phone]. A MESSAGE HAS BEEN SENT TO THE MEDICAL CLERICAL ASSISTANT REGARDING THIS CHANGE WELL.
--- NOTE | 2020-10-05 12:30 | NUR ---
cm called spoke with son lorna # [phone] via phone call, he agree with his mom cont therapy and then verified that he is planning on bringing mom home to live with family and she will have family support.
[2020-10-05 20:00] VITALS: BP 167/56
--- NOTE | 2020-10-06 01:32 | NUR ---
assumed care approx 0 evening 10/05. pt lying in bed dozing off and on at change of shift. pt awoke and assisted with changing of brief and turning. pt also given hs meds with water tolerating well. pt pleasant and cooperative before falling back asleep. pt assist with turning and repositioning. bed alarm on and call light in reach. will continue to monitor.
[2020-10-06 07:30] VITALS: BP 150/58
--- NOTE | 2020-10-06 09:45 | NUR ---
ASSUMED CARE AT 0700 THIS MORNING. PT. IN ROOM GETTING READY FOR A SHOWER ASSISTED BY THERAPIES. PT. PLEASANT AND COOPERATIVE WITH THIS. PT. VERBALIZED FEELING MUCH BETTER AFTER SHOWER. SHE ATE VERY LITTLE BREAKFAST. SHE WAS UPSET THAT THE KITCHEN KEEPS SENDING BUTTER PECAN SUPPLEMENT WITH EACH MEAL. SHE ASKED IF THEY COULD SEND STRAWBERRY INSTEAD. THE KITCHEN WAS NOTIFIED OF THE SAME. SHE TOOK HER MEDICATIONS WITHOUT PROBLEMS NOTED.
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
[2020-10-06 20:25] VITALS: BP 146/57
--- NOTE | 2020-10-07 05:30 | NUR ---
PATIENT IS DRY NOW, HAS BEEN INCONTINENT OF URINE 3 TIMES TONIGHT, CHANGED LINEN SAVER AND Z-GUARD WAS APPLIED EACH TIME. TOLERATING PILLS WITH APPLESAUCE AND TAKING SIPS OF WATER AFTERWARDS TO CLEAR. LANTUS INSULIN WAS HELD LAST NIGHT FOR BLOOD SUGAR UNDER 150 = 138. LOW AIR LOSS THERAPY CONTINUES
[2020-10-07 08:00] VITALS: BP 136/84
--- NOTE | 2020-10-07 11:29 | NUR ---
PT ALERT AND ORIENTED TIMES THEE WITH PERIODS OF CONFUSION. VSS. PT DENIES PAIN/SOA. PT TOLERATES MEDS AND MEALS. PT WORKED WELL WITH PT/OT TODAY. PT PROGRESSING TOWRADS POC GOALS.
[2020-10-07 19:26] VITALS: BP 155/63
--- NOTE | 2020-10-07 23:34 | NUR ---
PT ASSESSMENT COMPLETED AND VSS. MEDS GIVEN ORDERED AND WELL TOLERATED. FALL PRECAUTIONS IN PLACE. ASST WITH REPOSITION FOR COMFORT USING PILLOWS. INSULIN GIVEN ORDERED. SNACK PROVIDED. PRN SLEEPING MEDICATON WORKING WELL. WILL CONTINUE TO MONITOR FREQUENTLY.
[2020-10-08 07:45] VITALS: BP 113/60
--- NOTE | 2020-10-08 12:30 | NUR ---
ASSUMED CARE AT 0700. PATIENT IS ALERT AND ORIENTED X 1-2. PATIENT HAS RIGHT SIDED WEAKNESS. UP IN CHAIR FOR MEALS. LUNGS ARE DEMINISHED. ABD IS SOFT WITH BSX4. PATIENT HAD BM TODAY. FALL AND SAFETY PROTOCOLS IN PLACE. DENIES PAIN DRESSING TO RIGHT SHOULDER CHANGED. CONTINUES TO PROGRESS SLOWLY TOWARDS D/C GOALS. WILL CONTINUE TO MONITER.
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
[2020-10-08 20:03] VITALS: BP 146/76
--- NOTE | 2020-10-08 23:45 | NUR ---
PT ASSESSMENT COMPLETED AND VSS. MEDS GIVEN ORDERED AND WELL TOLERATED. FALL PRECAUTIONS IN PLACE. ASST WITH FREQUENT REPOSITION FOR COMFORT AND TO RELIEVE PRESSURE FROM BOTTOM. SLEEP MEDICATION WORKING WELL. PT DENIES NEEDS. SLEEPING WELL. WILL CONTINUE TO MONITOR FREQUENTLY.
[2020-10-09 05:05] LABS: CALCIUM 8.6 mg/dL (8.5-10.1); MAGNESIUM 1.8 mg/dL (1.8-2.4); POTASSIUM 4.3 mmol/L (3.5-5.1)
[2020-10-09 07:29] VITALS: BP 165/68
--- NOTE | 2020-10-09 10:45 | NUR ---
ASSUMED CARE AT 0700. PATIENT IS ALERT AND ORIENTED X1-2. PATIENT GUAJARDO'S. INFORMATION SYSTEMS PLANNER ARE EQUAL. LUNGS ARE CLEAR AND DEMINISHED. ABD IS SOFT WITH BSX4. PATIENT IS INCONTINENT OF B & B. UP IN BED FOR BREAKFAST. FALL AND SAFETY PROTOCOLS IN PLACE. DENIES PAIN. CONTNUES TO PROGRESS TOWARDS D/C GOALS. WILL CONTINUE TO MONITER.
[2020-10-09 20:03] VITALS: BP 183/73
--- NOTE | 2020-10-10 01:38 | NUR ---
assumed care approx 0 evening 10/09. pt lying in bed at change of shift. pt alert and oriented x4, pleasant and cooperative. pt took hs meds with applesauce tolerating well. pt incontinent of bowel and bladder and assisted with changing and turning. bed alarm on and call light in reach. will continue to monitor.
[2020-10-10 05:29] LABS: ABSOLUTE NEUTROPHILS 7.2 thou/uL (1.4-8.2); BASOPHILS 0.9 % (0.0-2.0); EOSINOPHILS 2.8 % (0.0-3.0); HEMATOCRIT 33.4 % (37.0-47.0); HEMOGLOBIN 10.8 gm/dL (12.0-15.0); LYMPHOCYTES 21.8 % (24.0-44.0); MCH 29.4 pg (26.0-34.0); MCHC 32.3 g/dL (28.0-37.0); MCV 91.1 fL (80.0-100.0); PLATELET COUNT 370 thou/uL (150-400); POLYS 69.5 % (36.0-66.0); RBC 3.67 mil/uL (4.20-5.00); RDW 15.4 % (10.5-14.5); WBC 10.4 thou/uL (4.0-11.0)
[2020-10-10 05:55] LABS: CALCIUM 8.7 mg/dL (8.5-10.1); CREATININE 0.9 mg/dL (0.6-1.0); MAGNESIUM 1.8 mg/dL (1.8-2.4); POTASSIUM 4.1 mmol/L (3.5-5.1)
[2020-10-10 08:39] VITALS: BP 120/66
--- NOTE | 2020-10-10 18:55 | NUR ---
Pt up in chair for much of shift. Incontinent of urine. Encouraged to call for help to bathroom when feeling urge, but has not done so. VSS.
[2020-10-10 19:50] VITALS: BP 144/49
--- NOTE | 2020-10-11 02:40 | NUR ---
Z-GUARD TO BOTTOM WHICH REMAINS PINK. PATIENT IS TURNING HERSELF A LITTLE BIT, AND WAS CLEANED OF INCONTINENT URINE, ALTHOUGH SHE STATED SHE WOULD RATHER BE LEFT ALONE AND SIT IN IT UNTIL MORNING.
[2020-10-11 07:23] VITALS: BP 158/71
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
--- NOTE | 2020-10-11 12:47 | NUR ---
team meeting, reccommendation: sever memory and cog. needs assist with pills and bills. hh (pt, ot, st, nursing), fww. she will be going to stay with her son lorna. will cont following as needed for dc needs.
--- NOTE | 2020-10-11 18:13 | NUR ---
ASSUMED PATIENT CARE AT 0700. A/O X3. CONFUSED. WORK WITH PT/OT/ST. DRESSING CHANGE PER ORDER. SLOWLY TOWARDS POC GOALS.
[2020-10-11 19:15] VITALS: BP 159/72
--- NOTE | 2020-10-12 04:45 | NUR ---
ASSESSMENT: PT REMAINS ALERT AND ORIENT TIMES 1-2 FORGETFUL AT TIMES. RIGHT SHOULDER DRESSING C/D/I, Z-KATIE ON BUTTOCKS, REGIONAL LOSS PREVENTION MANAGER. DENIES HALLUCINATIONS THIS SHIFT. SLOW PROGRESS WILL CONTINUE TO MONITOR.
[2020-10-12 08:00] VITALS: BP 135/58
--- NOTE | 2020-10-12 14:29 | NUR ---
ASSUMED CARE AT 0700. ALERT AND ORIENTATED. REPORTED SLEPT WELL LAST NIGHT, DENIES ANY PAIN. ACCUCHECKS DONE AND INSULIN GIVEN ORDERED. DRESSING CHANGES TO R SHOULDER DONE. TOLERATED MEDS WITH APPLE SAUCE. COCCYX/SACRAL WOUND PINK AND Z GUARD APPLIED. LAST BM ON 10/11. TOLERATED MEDS WHOLE WITH APPLE SAUCE. PARTICIPATING WITH THERAPY AND PROGRESSING TOWARDS GOAL.
--- NOTE | 2020-10-12 15:04 | NUR ---
cm visited with son lorna, agree with dcp 10/21, he going to check with his to see what hh to use. speech to reach out to son rt diet and swallow.
[2020-10-12 19:15] VITALS: BP 171/75
--- NOTE | 2020-10-13 04:06 | NUR ---
ASSESSMENT CHARTED, REMAINS A&O THRU THE NOC, LANTUS HELD AT HS FOR BG <150, VSS, RESTING QUIETLY IN BED THRU THE NOC, NO C/O APIN WILL CON'T TO MONITOR.
[2020-10-13 08:10] VITALS: BP 139/49
--- NOTE | 2020-10-13 12:45 | NUR ---
ASSUMED CARE AT 0700. ALERT AND ORIENTATED. PT REPORTED DID NOT SLEEP WELL AND FEELING TIRED THIS MORNING. SHE ALSO REPORTED RASH ON HER RLE. ORDERS RECEIVED FOR HYDROCORTISONE CREAM WITH GOOD RELIEF. BLOOD SUGAR CHECKED AND INSULIN GIVEN APPROPRIATELY PER SSI. APPETITE FAIRLY GOOD. HAD A BM TODAY. WOUND CARE TO COCCYX AND R SHOULDER DONE. PARTICIPATING WITH THERAPY TOWARDS GOAL.
[2020-10-13 20:07] VITALS: BP 164/63
--- NOTE | 2020-10-14 03:30 | NUR ---
assumed care approx 1900 evening 10/13. pt sleeping at change of shift. pt incontinent of urine and assisted with brief change. pt awoke for hs meds with applesauce tolerating well. pt appears to be sleeping soundly. bed alarm on and call light in reach. will continue to monitor.
[2020-10-14 08:00] VITALS: BP 132/54
[2020-10-14] MEDS ORDERED: COLACE100 MG PO (08:31)
[2020-10-14] MEDS ORDERED: GABAPENTIN 100100 MG PO (08:31)
[2020-10-14] MEDS ORDERED: FOLIC ACID1 MG PO (08:31)
[2020-10-14] MEDS ORDERED: ASPIRIN325 PO (08:31)
[2020-10-14] MEDS ORDERED: LIPITOR40 MG PO (08:31)
[2020-10-14] MEDS ORDERED: VITAMIN B-12500 MCG PO (08:31)
--- NOTE | 2020-10-14 18:09 | NUR ---
Alert and orientated X4. Calm, cooperative and compliant. Breath sounds clear. Reg HR auscultated. Color pink with brisk capillary refill and palpable peripheral pulses. Up to BSC, yellow urine. Active bowel sounds over soft, rounded abdomen. Buttocks cleaned and zguard applied. Drsg to R shoulder changed, wound cleaned with NS and silvadene applied. Currently in room without s/o distress.
[2020-10-14 20:00] VITALS: BP 178/53
--- NOTE | 2020-10-15 01:58 | NUR ---
assumed care approx 1900 evening 10/14. pt alert and oriented x4, pleasant and cooperative. pt incontinent of urine at change of shift assisted with complete bed change and into gown for hs. pt took hs meds with applesauce tolerating well. pt appears to be sleeping soundly. bed alarm on and call light in reach. will continue to monitor.
[2020-10-15 08:00] VITALS: BP 136/54
--- NOTE | 2020-10-15 14:10 | NUR ---
CARE ASSUMED AT 0700, PT ALERT AND ORIENTED X4, COOPERATIVE AND PLEASANT. DENIES ANY CHEST PAIN, NAUSEA AND VOMITTING. PT IS ON ROOM AIR, NO SIGNS OF DISTRESS NOTED. USES CALL LIGHT APPROPRIATELY. CONTINENT DURING THE DAY, STANDY WITH WALKER TO THE BATHROOM. FALL PRECAUTIONS IN PLACE. CALL LIGHT WITHIN REACH. WILL CONTINUE TO MONITOR
[2020-10-15 19:37] VITALS: BP 173/78
--- NOTE | 2020-10-15 23:41 | NUR ---
PT ALERT AND ORIENTED X 4. INCONT OF URINE. RIGHT SHOULDER DRESSING C/D/I. PT TOOK HS MEDS IN APPLESAUCE WITHOUT DIFFICULTY. PT DENIES PAIN OR DISCOMFORT. BED ALARM ON FOR SAFETY. PT APPEARS TO BE SLEEPING ON HOURLY ROUNDS.
[2020-10-16 08:00] VITALS: BP 146/71
--- NOTE | 2020-10-16 11:45 | NUR ---
ASSUMED CARE AT 0700. SLEPT FAIRLY WELL. ALERT AND ORIENTATED. REPORTED SOME DISCOMFORT IN HER BOTTOM WHEN LYING ON IT BUT IS RELIEF WITH POSITIONING. DENIES ANY PAIN IN L SHOULDER SITE WOUND. HAD A MOD SOFT STOOL THIS MORNING, Z GUARD APPLIED TO L BUTTOCK AND SACRUM. WOUND HEALING APPROPRIATELY. WOUND CARE TO R SHOULDER DONE, WITH NO S/S OF INFLAMMATION. BLOOD SUGAR DONE AND SSI GIVEN ACCORDINGLY. APPETITE FAIRLY GOOD. TOLERATED HER MEDS IN APPLE SAUCE. WALKED WITH STAFF IN THE HALLWAY WITHOUT ANY DIFFICULTY.
[2020-10-16 20:09] VITALS: BP 170/69
--- NOTE | 2020-10-17 00:13 | NUR ---
PT ALERT AND ORIENTED X 4. INCONT OF URINE. LEFT SIDED WEAKNESS. PT C/O HEADACHE AT START OF SHIFT. TYLENOL GIVEN WITH RELIEF OF PAIN VERBALIZED. BLOOD SUGAR 187 AT HS. LANTUS INSULIN GIVEN ORDERED. PT TAKES MEDS IN APPLESAUCE WITHOUT DIFFICULTY. BED ALARM ON FOR SAFETY. PT APPEARS TO BE SLEEPING ON HOURLY ROUNDS.
[2020-10-17 05:14] LABS: ABSOLUTE NEUTROPHILS 3.7 thou/uL (1.4-8.2); BASOPHILS 1.3 % (0.0-2.0); EOSINOPHILS 3.8 % (0.0-3.0); HEMATOCRIT 32.6 % (37.0-47.0); HEMOGLOBIN 10.4 gm/dL (12.0-15.0); MCH 29.3 pg (26.0-34.0); MCHC 31.9 g/dL (28.0-37.0); MCV 91.9 fL (80.0-100.0); MONOCYTES 8.2 % (1.0-8.0); PLATELET COUNT 288 thou/uL (150-400); POLYS 52.7 % (36.0-66.0); RBC 3.54 mil/uL (4.20-5.00); RDW 15.4 % (10.5-14.5)
[2020-10-17 05:21] LABS: CALCIUM 8.6 mg/dL (8.5-10.1); CREATININE 0.9 mg/dL (0.6-1.0); MAGNESIUM 1.8 mg/dL (1.8-2.4)
[2020-10-17 07:40] VITALS: BP 129/64
--- NOTE | 2020-10-17 11:30 | NUR ---
ASSUMED CARE AT 0700. SLEPT FAIRLY WELL. ALERT AND ORIENTATED. DENIES ANY PAIN. APPETITE FAIRLY GOOD. ACCUCHECKS DONE WITH INSULIN GIVEN ACCORDINGLY. HAD A BM TODAY, AN RODRÍGUEZ. WOUND CARE TO SACRUM AND L BUTTOCK DONE WITH Z GUARD AND WOUND CARE TO R SHOULDER DONE WITH NO S/S OF INFECTION. PARTICIPATING IN THERAPY AND PROGRESSING WELL TOWARDS GOAL.
[2020-10-17 19:56] VITALS: BP 179/65
--- NOTE | 2020-10-18 04:33 | NUR ---
Pt. requested tylenol with her HS meds and requested second dose of melatonin. Slept well during the night. Calls appropriately when assistance needed.
--- NOTE | 2020-10-18 06:39 | NUR ---
Pt. requested tylenol for pain with some relief. She also requested for her sleep med and the second dose of melatonin. She stated this am she slept intermittently. Incontinent of bladder and bowel last night. Bed alarm on for safety. SCD's on at HS then requested off later on.
[2020-10-18 07:00] VITALS: BP 151/74
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
--- NOTE | 2020-10-18 08:40 | NUR ---
PT DID SIT IN CHAIR THIS AM FOR BREAKFAST. PT STATED SHE WILL DRINK HER MILK AND GLUCERNA. PT DID TAKE A BITE OUT OF EGGS AND SAUSAGE. PT TOOK MEDS WITHOUT ANY ISSUES. PT DID TAKE LARGER MEDS IN APPLESAUCE.
[2020-10-18 12:50] LABS: URINE BILIRUBIN NEGATIVE (Negative); URINE BLOOD TRACE (Negative); URINE COLOR YELLOW; URINE GLUCOSE-RANDOM* NEGATIVE (Negative); URINE KETONES NEGATIVE (Negative); URINE NITRITE-REFLEX NEGATIVE (Negative); URINE PROTEIN (DIPSTICK) NEGATIVE (Negative); URINE SPECIFIC GRAVITY 1.015 (1.005-1.035); URINE UROBILINOGEN 0.2 E.U./dl (0.2-1.0)
[2020-10-18 12:51] LABS: URINE CLARITY HAZY; URINE LEUKOCYTES-REFLEX 3+ (Negative)
[2020-10-18 13:01] LABS: CASTS None Seen /LPF (None Seen); SQUAMOUS 4-10 Moderate /LPF (0-3)
[2020-10-18 13:02] LABS: MUCUS 4-6 Moderate strn/LPF (None Seen); URINE RBC 0-2 Rare /HPF (0-2); URINE WBC-REFLEX >25 Many /HPF (0-5)
[2020-10-18 13:04] LABS: BACTERIA-REFLEX 1-9 Few /HPF (None Seen); CRYSTALS None Seen /LPF (None Seen)
[2020-10-18 13:05] LABS: YEAST-REFLEX Present (None Seen)
--- NOTE | 2020-10-18 13:30 | NUR ---
team meeting, reccommendation: she been talking allot about her spouse passing and her daughter . she cared for her kids that have . not eating allot. bs checks. clues with instruction. fww, supervision with transfer and walking. HH (pt, ot, nursing, sw, st) at her son home dc 10/21. provider plus will deliver fww prior to dc. still incont b and b at hs. family to assist with medication and finances.
--- NOTE | 2020-10-18 16:32 | NUR ---
PT IN GOOD SPIRITS AFTER GETTING UP IN CHAIR. PT TOOK MEDS WITHOUT ANY ISSUES. PT STARTING ABX FOR URINE OBTAINED TODAY AND HAS A UTI. PT UP WITH ASSIST X1 TO BATHROOM. CREAM APPLIED TO BUTTOCKS WHEN SHE VOIDED TODAY. PT HAS ABRASION TO LEFT BUTTOCKS AND SMALL OPEN AREA TO TOP OF COCCYX.
[2020-10-18 19:24] VITALS: BP 169/41
--- NOTE | 2020-10-19 04:10 | NUR ---
PROGRESS PT A/O X4 UP WITH 1 GB AND WALKER TO BSC, INCONTINENT X 1. PT DENIES PAIN. HAD A DEPRESSIVE EPISODE EARLIER IN THE DAY BUT NO EVIDENCE OF THAT NOW PT PLEASANT AND COOPERATIVE. GOAL FOR THE NIGHT IS JUST TO SLEEP. VSS CONTINUE TO MONITOR.
[2020-10-19 08:05] VITALS: BP 134/62
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
--- NOTE | 2020-10-19 10:31 | NUR ---
ASSUMED PT CARE AT 0700. PT SITTING IN CHAIR WATCHING TV. ASSESSMENT PERFORMED. PT DENIES PAIN AT THIS THIS TIME. VSS. WILL CONTINUE TO MONITOR PT.
--- NOTE | 2020-10-19 14:20 | NUR ---
PATIENT STATED THAT SHE WANTS DR. LUND TO BE THE MD TO FOLLOW HER CAROTID ISSUES. PER DR. YOUNGER, THIS WILL NEED TO BE ADDRESSED WITHIN THE NEXT 2 WEEKS AFTER DISCHARGE FROM REHAB, AND THIS NM HAS CALLED DR. LUND'S OFFICE TO GET THIS SET UP. THEIR PHONE # IS [phone], AND THEIR ONLY LOCATION FOR THE WORKUP IS IN THE [facility]. THE MANAGER DISH AT THE OFFICE STATED THAT THEY HAVE BEEN TRYING TO GET THIS PATIENT IN TO SEE THEM SINCE AUGUST, BUT HER HAD CANCELLED THE APPOINTMENT. NOTIFIED THEM THAT THE NEW MANAGER GARAGE WOULD BE HER SON CELESTINO, AND HIS PHONE # WAS GIVEN TO THE NURSE. THEY WILL PHONE CELESTINO DIRECTLY TO SCHEDULE THE APPOINTMENT, AND THIS NM HAS REQUESTED THAT THEY ALSO CALL US PRIOR TO DISCHARGE, SO WE CAN INCLUDE THE DETAILS IN HER DISCHARGE EDUCATION. MESSAGE HAS BEEN SENT TO HER CARE TEAM REGARDING THIS WELL.
--- NOTE | 2020-10-19 15:02 | NUR ---
cm spoke with son x 3 today checking on what [employer] company they want to use for tyrone. " i keep forgetting what my is telling me who it is, i sent her message and will let you know"/son lorna.
[2020-10-19 19:24] VITALS: BP 155/55
--- NOTE | 2020-10-20 06:00 | NUR ---
ASSESSMENT: PT REMAIN ALERT AND ORIENT TIMES THREE. DENIES PAIN, SOB AND N/V. TOOK MEDS WITHOUT DIFFICULTY. INCONT TIMES ONE. SLOW PROGRESS TOWARDS DC GOALS., POSSIBLE DC SATURDAY.
[2020-10-20 08:00] VITALS: BP 150/75
--- NOTE | 2020-10-20 15:01 | NUR ---
Assumed pt care at 0700. pt alert and oriented x4. Assessments completed,VSS. Pt is co-operative with care. Left shoulder wound change completed. worked with therapy. denies pain at this time. pt is excited about discharge tomorrow. pt took meds whole. no difficulty noted. pt call when she need assistance. will continue to monitor pt.
[2020-10-20 20:08] VITALS: BP 162/55
--- NOTE | 2020-10-21 03:20 | NUR ---
ASSUMED PT CARE AT 1900.PT WAS OBSERVED SITTING UP IN THE RECLINER IN HER ROOM AT SHIFT CHANGE.PT DENIED PAIN SO FAR.BG MONITORED WITH COVERAGE.Z MAXIME T HER BUTTOCK.PT CONT ON SWALLOW PRECAUTION.MEDS WHOLE IN APPLESAUCE,PT TREVA WELL.PT SLEEPING ON HER BED AT THIS TIME.PT LOOKING FORWARD TO BE DC'D LATER TODAY.CALL LIGHT WITHIN REACH.
[2020-10-21 07:15] VITALS: BP 141/54
[2020-10-21 09:13] VITALS: BP 141/54
[2020-10-21] MEDS ORDERED: NOVOLOG100 UNIT/1 SUBQ (09:45)
--- NOTE | 2020-10-21 10:56 | NUR ---
FAXED REFERRAL TO A HH SPOKE WITH [facility] IN INTAKE THEY CAN ACCEPT AT [place].
--- NOTE | 2020-10-21 12:40 | NUR ---
ASSUMED PT CARE THIS AM. PT VSS, A&OX3. PT PLEASANT AND COOPERATIVE WITH STAFF. SOME WEAKNESS REPORTED. Z GUARD APPLIED ON BOTTOM. ON A LOW AIRLOSS MATTRESS. PT CALLING OUT APPROPRIATELY WHEN NEEDED. FALL PRECAUTIONS IN PLACE. TOOK MEDS WELL WITHOUT COMPLAINT. AMBULATORY WITH ASSISTANCE. ON ROOM AIR. REPORTING NO PAIN.
== END 2020-10-21 16:25 | disposition home health service (06) | DRG 64 ==
PROVIDERS: Nurse Practitioner; Nurse Practitioner Family; ADMIT Physical Medicine & Rehabilitation; ATTEND Physical Medicine & Rehabilitation
DX: I63.231 Cerebral infarction due to unspecified occlusion or stenosis of right carotid arteries (principal); E11.10 Type 2 diabetes mellitus with ketoacidosis without coma; L89.153 Pressure ulcer of sacral region, stage 3; A41.51 Sepsis due to Escherichia coli [E. coli]; I16.1 Hypertensive emergency; N39.0 Urinary tract infection, site not specified; E46 Unspecified protein-calorie malnutrition; R13.10 Dysphagia, unspecified; E11.42 Type 2 diabetes mellitus with diabetic polyneuropathy; M19.90 Unspecified osteoarthritis, unspecified site; B96.20 Unspecified Escherichia coli [E. coli] as the cause of diseases classified elsewhere; E78.5 Hyperlipidemia, unspecified; F32.9 Major depressive disorder, single episode, unspecified; F41.9 Anxiety disorder, unspecified; I10 Essential (primary) hypertension; K21.9 Gastro-esophageal reflux disease without esophagitis; E78.00 Pure hypercholesterolemia, unspecified; T22.251A Burn of second degree of right shoulder, initial encounter; X16.XXXA Contact with hot heating appliances, radiators and pipes, initial encounter; F01.50 Vascular dementia, unspecified severity, without behavioral disturbance, psychotic disturbance, mood disturbance, and anxiety; E87.6 Hypokalemia; E83.42 Hypomagnesemia; E53.8 Deficiency of other specified B group vitamins; M48.061 Spinal stenosis, lumbar region without neurogenic claudication; R29.810 Facial weakness; L89.309 Pressure ulcer of unspecified buttock, unspecified stage; G20 Parkinson's disease; Z79.899 Other long term (current) drug therapy; Z79.4 Long term (current) use of insulin; Z88.8 Allergy status to other drugs, medicaments and biological substances; Z91.041 Radiographic dye allergy status; Y93.89 Activity, other specified; Y92.091 Bathroom in other non-institutional residence as the place of occurrence of the external cause; Y99.8 Other external cause status; Z87.891 Personal history of nicotine dependence; Z68.26 Body mass index [BMI] 26.0-26.9, adult
CPT/HCPCS: 10112

== ENCOUNTER 2020-10-24 16:29 | Emergency (ER) | payer OTHER, BC ==
[~2020-10-24] VITALS: Ht 167.6 cm; Wt 72.6 kg
[~2020-10-24 16:29] MED LIST changes: +COLACE100 MG PO; +FOLIC ACID1 MG PO; +GABAPENTIN 100100 MG PO; +LANTUS100 UNIT/M SUBQ; +LIPITOR40 MG PO; +NOVOLOG100 UNIT/1 SUBQ; +ROCEPHIN 11 GM/1001 IV; +VITAMIN B-12500 MCG PO
[2020-10-24 21:24] VITALS: BP 154/72
== END 2020-10-24 21:35 | disposition home or self-care (01) ==
LOC: ER 16:29
DX: I10 Essential (primary) hypertension (principal); E11.9 Type 2 diabetes mellitus without complications; E78.5 Hyperlipidemia, unspecified; K21.9 Gastro-esophageal reflux disease without esophagitis; Z79.4 Long term (current) use of insulin; Z79.82 Long term (current) use of aspirin; Z79.899 Other long term (current) drug therapy; Z79.01 Long term (current) use of anticoagulants; Z88.8 Allergy status to other drugs, medicaments and biological substances

== ENCOUNTER 2021-02-22 13:13 | Inpatient (IN) | payer OTHER, BC ==
[~2021-02-22] VITALS: Ht 167.6 cm; Wt 67.2 kg
[2021-02-22] VITALS (7 sets, daily range): BP systolic 131–225; BP diastolic 65–105
--- NOTE | ~2021-02-22 | EMS ---
[address] [address] EMS Patient Care Report Name: TACO RED Room #: 350-P ADM IN M.R.#: [id number] Admission: 02/22/21 Attend Phys: Rj Olivo MD Discharge: Date of : 40 Report #: [id number] THIS REPORT FOR: //name// Report Transmitted: 02/24/2021 08:51 EMS Care Summary [facility] Incident [id number] @ 02/22/2021 11:27 Incident Location [address] [place] [address] [place] [address] Patient TACO RED Female, 80 Years 1940 Patient Address [address] [place], [place] [address] [address] Patient History Diabetes,Hypertension (HTN),Stroke/CVA,TIA,Chronic Pain, Patient Allergies No known allergies, Patient Medications Melatonin, Atorvastatin, Bupropion, Gabapentin, Lantus, Clopidogrel, Chief Complaint I am generally weak Disposition Transported No Lights/[place] Dispatch Reason Stroke/CVA Transported To [facility] Narrative Med 1 [place] [id number] Flannery on a possible stroke, female with slurred speech. Med 1 copied the call and began our response to the scene. We arrived on scene without incident. We made our way to the residence where we were let into the home by the patients Granddaughter. [address] [place] [address] EMS Patient Care Report Name: TACO RED Room #: 350-P [facility] IN .R.#: [id number] Admission: 02/22/21 Attend Phys: Rj Olivo MD Discharge: Date of : 40 Report #: [id number] Sitting reclined in her chair we found an a 80 year old female. Patient was found to be alert with a GCS of 15. Her speech was noted to be slurred to which she advised is not normal. She thinks that she had slurred speech the day prior also but it cleared up on its own. Patient has a history of CVA with no lasting effects. She no longer takes a blood thinner. She denied any recent falls or other possible trauma. She denied any recent sickness. She's had no medication or dose changes in the last 6 months however doesn't take her meds as prescribed. She forgets which ones to take and family quit helping her set them up. She's been incontinent of urine for the last month. She denied painful urination and no blood in it. She was assessed at her side on the MEND and stroke exam however negative findings minus slurred speech. Patients last known well time was 0400. Vitals along with blood sugar assessed at her side. She was assisted to stand from her chair. We helped her change her wet pants to keep her dry. She was then assisted to the cot where she was covered and secured. She was taken to the ambulance and placed inside. Vitals were monitored. ECG 12 lead monitored showing NSR. IV access was obtained in the left AC. She was given a dose of nitro spray under her tongue to help drop her BP. We began transport to [facility] per her request for evaluation. Patient was monitored during transport. Her BP began to increase again so we gave an additional dose of nitro to drop her back down. Her slurred speech did improve during transport. She felt as though she was able to speak closer to her normal. Radio report was called in to the ER 25 min prior via [employer] radio. Upon arrival to the ER patient was taken inside and moved to the ER bed where report was given. Signatures were obtained and care transferred. Med 1 cleared to return to service. Initial Vitals @12:23P: 96,R: 18,BP: 186/121,GCS: 15,SpO2: 99,Revised Trauma: 12, @12:18P: 96,R: 16,BP: 174/121,Pain: 0/10,GCS: 15,SpO2: 97,Revised Trauma: 12, @12:33P: 85,R: 20,BP: 192/119,Pain: 0/10,GCS: 15,SpO2: 96,Revised Trauma: 12, @12:38P: 88,R: 16,BP: 170/103,GCS: 15,SpO2: 97,Revised Trauma: 12, @12:08P: 90,R: 18,BP: 235/127,GCS: 15,SpO2: 100,Revised Trauma: 12, @11:55P: 86,R: 22,BP: 235/127,Pain: 0/10,GCS: 15,SpO2: 99,Revised Trauma: 12, @12:52P: 90,R: 16,BP: 164/70,Pain: 0/10,GCS: 15,SpO2: 99,Revised Trauma: 12, @12:43P: 96,R: 18,BP: 174/90,Pain: 0/10,GCS: 15,SpO2: 97,Revised Trauma: 12, @11:41P: 96,R: 18,BP: 188/90,Pain: 0/10,GCS: 15,Temp: 98.1F,Glucose: 435,SpO2: 99,Revised Trauma: 12, Assessments @11:43MENTAL:Time Oriented,Person Oriented,Place Oriented,Event Oriented,SKIN:HEENT:LUNG SOUNDS:ABDOMEN:PELVIS//GI:Incontinence,EXTREMITIES:PULSE:NEURO:@12:23MENTAL:Pe rson Oriented,Event Oriented,Time Oriented,Place Oriented,SKIN:HEENT:LUNG [facility] [address] [place] [address] EMS Patient Care Report Name: TEOFILOTACO L Room #: 350-P [facility] IN .R.#: [id number] Admission: 02/22/21 Attend Phys: Rj Olivo MD Discharge: Date of : 40 Report #: [id number] SOUNDS:ABDOMEN:PELVIS//GI:EXTREMITIES:PULSE:NEURO: Impression Generalized Weakness Procedures @12:18Nitro [place] - 0.4 Milligrams (mg) - SublingualResponse: Unchanged@12:16Saline Lock 10cc (20 ga) Site: Antecubital-LeftResponse: UnchangedSucceeded@11:42ALS AssessmentResponse: UnchangedSucceeded@12:34Nitro [place] - 0.4 Milligrams (mg) - SublingualResponse: Improved@11:5512-Lead ECGResponse: UnchangedSucceeded@12:5212-Lead ECGResponse: UnchangedSucceeded Timeline 11:25,Call Received 11:27,Dispatched 11:28,En Route 11:39,On Scene 11:41,At Patient 11:41,BP: 188/90 M,PULSE: 96,RR: 18 R,SPO2: 99 Ox,ETCO2: ,B,PAIN: 0,GCS: 15, 11:42,ALS Assessment,Response: UnchangedSucceeded, 11:55,12-Lead ECG,Response: UnchangedSucceeded, 11:55,BP: 235/127 M,PULSE: 86,RR: 22 R,SPO2: 99 Ox,ETCO2: ,BG: ,PAIN: 0,GCS: 15, 11:56,Depart Scene 12:08,BP: 235/127 M,PULSE: 90,RR: 18 R,SPO2: 100 Ox,ETCO2: ,BG: ,PAIN: ,GCS: 15, 12:16,Saline Lock 10cc 20 ga Site: Antecubital-Left,Response: UnchangedSucceeded, 12:18,BP: 174/121 M,PULSE: 96,RR: 16 R,SPO2: 97 Ox,ETCO2: ,BG: ,PAIN: 0,GCS: 15, 12:18,Nitro [place] - 0.4 Milligrams (mg) - Sublingual,Response: Unchanged 12:23,BP: 186/121 M,PULSE: 96,RR: 18 R,SPO2: 99 Ox,ETCO2: ,BG: ,PAIN: ,GCS: 15, 12:33,BP: 192/119 M,PULSE: 85,RR: 20 R,SPO2: 96 Ox,ETCO2: ,BG: ,PAIN: 0,GCS: 15, 12:34,Nitro [place] - 0.4 Milligrams (mg) - Sublingual,Response: Improved 12:38,BP: 170/103 M,PULSE: 88,RR: 16 R,SPO2: 97 Ox,ETCO2: ,BG: ,PAIN: ,GCS: 15, 12:43,BP: 174/90 M,PULSE: 96,RR: 18 R,SPO2: 97 Ox,ETCO2: ,BG: ,PAIN: 0,GCS: 15, 12:50,At Destination 12:52,12-Lead ECG,Response: UnchangedSucceeded, 12:52,BP: 164/70 M,PULSE: 90,RR: 16 R,SPO2: 99 Ox,ETCO2: ,BG: ,PAIN: 0,GCS: 15, 14:27,Call Closed Disclaimer v1.1 Copyright 2020 [employer] This EMS Care Summary contains data elements from the applicable legal record [facility] [address] [place] [address] EMS Patient Care Report Name: TACO RED Room #: 350-P ADM IN M.R.#: [id number] Admission: 02/22/21 Attend Phys: Rj Olivo MD Discharge: Date of : 40 Report #: [id number] (which may be displayed differently). It is designed to provide pertinent information for the following purposes: continuity of care, clinical quality, and state data reporting. The complete legal record is available to ED staff and administrators of the receiving hospital in [facility]'s Patient Tracker. All data is provided "as is."
--- NOTE | 2021-02-22 13:52 | NUR ---
1348, PATIENT HEADED TO CT WITH STROKE NURSE UNABLE TO COMPLETE.
[2021-02-22 14:14] LABS: BASOPHILS 0.5 % (0.0-2.0); EOSINOPHILS 2.3 % (0.0-3.0); HEMOGLOBIN 14.1 gm/dL (12.0-15.0); LYMPHOCYTES 21.3 % (24.0-44.0); MCH 30.9 pg (26.0-34.0); MCHC 33.7 g/dL (28.0-37.0); MONOCYTES 5.5 % (1.0-8.0); PLATELET COUNT 206 thou/uL (150-400); POLYS 70.4 % (36.0-66.0); RBC 4.56 mil/uL (4.20-5.00); RDW 13.1 % (10.5-14.5); WBC 8.6 thou/uL (4.0-11.0)
[2021-02-22 14:33] LABS: ANION GAP 6 mmol/L (7-16); BUN 12 mg/dL (7-18); CALCIUM 9.1 mg/dL (8.5-10.1); CHLORIDE 96 mmol/L (98-107); CO2 32 mmol/L (21-32); GLUCOSE 448 mg/dL (74-106); POTASSIUM 4.4 mmol/L (3.5-5.1); SODIUM 134 mmol/L (136-145)
[2021-02-22 14:42] LABS: ALBUMIN 3.3 g/dL (3.4-5.0); SGOT 18 U/L (15-37); SGPT 21 U/L (14-59); TOTAL BILIRUBIN 1.3 mg/dL (0.2-1.0); TOTAL PROTEIN 7.2 g/dL (6.4-8.2); TROPONIN-I <0.06 ng/mL (<0.06)
--- NOTE | 2021-02-22 16:10 | NUR ---
ATTEMPTED TO CALL REPORT TO CATALINO THACKER WAS NOTIFEF SHE IS GIVING REPORT AND WILL CALL ME BACK.
--- NOTE | 2021-02-22 16:29 | NUR ---
REPORT CALLED TO FER ON THE FLOOR, CATALINO.
[2021-02-22 16:31] LABS: FOLIC ACID 12.8 ng/mL (8.6-58.9)
[2021-02-22 17:14] LABS: APTT 24.8 Seconds (24.5-32.8); INR 0.98; PROTIME 10.7 Seconds (10.5-12.1)
--- NOTE | 2021-02-22 19:24 | NUR ---
ADMISSION NOTE:PT ADMITTED TO 350, ALERT AND ORIENTED X4, SLURRED SPEECH AND TINGLING IN THE HER MOUTH. DNEIES CHEST PAIN, NAUSEA AND VOMITTING. PROGRAM SUPPORT SPECIALIST PLACED, HR IN 70-80'S, SR. ON ROOM AIR, NO SIGNS OF DISTRESS. ADMISSION AND ASSESSMENT COMPLETED. CONSENTS SIGNED. SKIN INTACT, NIH ASSESSMENT COMPLETED. FALL PRECAUTIONS IN PLACE. UP TO BSC COMMODE WITH 1 ASSIST. NPO DUE FAIL SWAAL EVAL. REPORT GIVEN TO CATALINO SAMANIEGO
--- NOTE | 2021-02-23 00:47 | NUR ---
ASSUMED CARE OF PATIENT AT 1900. VSS, AFEBRILE. NIH 3 DUE TO SLIGHT DROOP AND SLURRED SPEECH. DENIES PAIN, SOA OR N/V. CALLS OUT APPROPRIATELY. ROUNDED ON FREQUENTLY. POC GOALS ESTABLISHED.
[2021-02-23 01:06] LABS: GLYCOHEMOGLOBIN (HGB A1C) 11.7 % (4.8-5.6)
[2021-02-23 03:26] LABS: ABSOLUTE NEUTROPHILS 4.7 thou/uL (1.4-8.2); BASOPHILS 0.6 % (0.0-2.0); EOSINOPHILS 2.8 % (0.0-3.0); HEMATOCRIT 38.4 % (37.0-47.0); HEMOGLOBIN 12.9 gm/dL (12.0-15.0); LYMPHOCYTES 35.6 % (24.0-44.0); MCH 30.8 pg (26.0-34.0); MCHC 33.6 g/dL (28.0-37.0); MCV 91.7 fL (80.0-100.0); MONOCYTES 5.8 % (1.0-8.0); PLATELET COUNT 203 thou/uL (150-400); POLYS 55.2 % (36.0-66.0); RBC 4.19 mil/uL (4.20-5.00); RDW 13.2 % (10.5-14.5); WBC 8.4 thou/uL (4.0-11.0)
[2021-02-23 03:35] LABS: CALCIUM 8.9 mg/dL (8.5-10.1); CREATININE 0.9 mg/dL (0.6-1.0); MAGNESIUM 1.6 mg/dL (1.8-2.4); POTASSIUM 3.5 mmol/L (3.5-5.1)
[2021-02-23 03:55] LABS: CHOLESTEROL 278 mg/dL (<200); HDL CHOLESTEROL 57 mg/dL (>40); LDL CHOLESTEROL 178 mg/dL (<100); TC:HDL 4.9 Ratio (Not establshd); TRIGLYCERIDE 219 mg/dL (<150); VLDL 44 mg/dL (<40)
[2021-02-23 04:17] VITALS: BP 180/81
[2021-02-23 04:23] LABS: SERUM ASSESSMENT Clear
--- NOTE | 2021-02-23 07:11 | EKG ---
[address] [place] [address] ELECTROCARDIOGRAM REPORT Name: TACO RED Room #: 350-[facility] IN ..#: [id number] Admission: 02/22/21 Attend Phys: Rj Olivo MD Discharge: Date of : 40 Report #: [id number] [facility] ED Test Date: 2021-02-22 Test Time: 14:17:35 Pat Name: TACO RED Department: Room: 350 Gender: F Department Head: REE : 1940 Requested By: Grant Alvarez Order Number: [id number] MD: Alex Ayala Measurements Intervals Gepp Rate: 75 P: 70 DE: 187 QRS: 20 QRSD: 108 T: 75 QT: 409 QTc: 457 Interpretive Statements Sinus rhythm Inferior infarct, old Anterior infarct, old Compared to ECG 09/29/2020 15:06:20 Intraventricular conduction delay no longer present Myocardial infarct finding still present Electronically Signed On 02-23-2021 7:11:29 CDT by Aelx Ayala [email or web address] <ELECTRONICALLY SIGNED> By: Alex Ayala MD, [facility] 02/23/21 0711 16 16 Alex Ayala MD, [facility] /EPI
[2021-02-23 07:34] VITALS: BP 196/82
[2021-02-23 13:55] VITALS: BP 110/58
[2021-02-23 14:14] VITALS: BP 140/60
--- NOTE | 2021-02-23 15:02 | NUR ---
met with patient who admits with CVA. Patients speech is gargled at times. Patient resides in home of her son, dtr in law and 18 year old granddtr. Granddtr is at home during day while parents at work. Patient does not cook. She uses a walker at all times. She is fearful to fall. She was dc from [facility] acute rehab 10/21/20. Patient would be agreeable to [facility] if needed. She does not want to go to nursing facility. Patient was dc with [facility] at the time. Patient reports they never came to home. Verfied her address. Sp with [facility] they report they were unable to reach patient and spouse. Patient spouse at time of referral. [facility] reports they called phys office and after a week was able to reach patient who declined services. [facility] does service [place] if HH needed. Therapy evals in process. [facility] following.
[2021-02-23 19:20] VITALS: BP 158/70
--- NOTE | 2021-02-23 19:49 | NUR ---
RN ASSUMED PT'S CARE AT 0700-1900PM, PT IS A&OX4, BUT PT STILL HAS ABNORMAL SPEACH, PT'S HIGH BP HAS IMPROVED AT DAY SHIFT, PT IS GOING TO [facility] FOR TRANSOSOPHAGEAL ECHOCARDIOGRAM TOMORROW .
--- NOTE | 2021-02-24 04:10 | NUR ---
Pt. slept well during the night. Up with assist to commode x1 assist, unsteady and impulsive at times. Speech slurred , denies any pain. Had large bm this am. Making some progress towards care plan goals.
[2021-02-24 04:15] VITALS: BP 139/66
--- NOTE | 2021-02-24 08:30 | TEE ---
[facility] [place] [address] TRANSESOPHAGEAL ECHOCARDIOGRAM Name: TACO RED Room #: 350-P ADM IN M.R.#: [id number] Admission: 02/22/21 Attend Phys: Rj Olivo MD Discharge: Date of : 40 Report #: [id number] THIS REPORT FOR: cc: Mor Kaiser Bradley L. DO Santiago, Patrick MD [facility] ~ APPROVED REPORT Study performed: 02/24/2021 07:38:07 EXAM: Transesophageal Echocardiogram Patient Location: In-Patient Room #: 350 Status: routine BSA: 1.76 HR: 53 bpm BP: 170/61 mmHg Rhythm: NSR Other Information Study Quality: Good Indications CVA Procedure After obtaining informed consent, patient underwent transesophageal echo in the [employer]. Type of Sedation : Conscious Sedation Sedation was administered by Gaye Hsieh RN. Sedation start time: 742 Case end Time: 744 Sedation was achieved intravenously with: Versed (2) Fentanyl (50) Transesophageal probe was inserted and advanced into esophagus without difficulty by Alex Ayala MD, [facility]. Echo enhancement indication: R/O Septal defect. Echo enhancement agent administered: Agitated Saline The ROCIO was performed without complications. Throughout the procedure, the blood pressure, pulse oximetry, cardiac rhythm, and rate were monitored. The patient tolerated the procedure without adverse effects. Recovery from conscious sedation was uneventful and vital signs were stable. [facility] [address] [place] [address] TRANSESOPHAGEAL ECHOCARDIOGRAM Name: TACO RED Room #: 350-P [facility] IN ..#: [id number] Admission: 02/22/21 Attend Phys: Rj Olivo MD Discharge: Date of : 40 Report #: [id number] Left Ventricle The left ventricle is normal size. There is normal LV segmental wall motion. Mild concentric left ventricular hypertrophy. Left ventricular systolic function is normal. LVEF is 55-60%. Right Ventricle The right ventricle is normal size. The right ventricular systolic function is normal. Atria Left atrium is dilated. No thrombus is visualized in the left atrium or appendage. No shunting noted with contrast bubble injection. The right atrium size is normal. Aortic Valve Aortic valve is calcified. No aortic regurgitation is present. There is no aortic valvular stenosis. Mitral Valve The mitral valve is normal in structure. There is no mitral valve regurgitation noted. No evidence of mitral valve stenosis. Tricuspid Valve The tricuspid valve is normal in structure. There is no tricuspid valve regurgitation noted. Great Vessels The aortic root is normal in size. Atherosclerotic plaque is present in the descending aorta. Pericardium There is no pericardial effusion. <Conclusion> Consent was obtained Timeout performed After appropriate sedation the esophageal probe was advanced without difficulty Left atrial appendage moderate size, no obvious mass or clot detected. Normal left ventricular size/wall thickness, ejection fraction 55-60% Normal atrial size Aortic valve mildly calcified, trileaflet, no stenosis detected Normal mitral valve structure and function [facility] [place] [address] TRANSESOPHAGEAL ECHOCARDIOGRAM Name: TACO RED Room #: 350-P [facility] IN ..#: [id number] Admission: 02/22/21 Attend Phys: Rj Olivo MD Discharge: Date of : 40 Report #: [id number] Normal tricuspid valve, negative for insufficiency No pericardial effusion No evidence of atrial/ventricular septal defect by color flow/bubble study Aorta minimal calcification throughout Patient tolerated procedure well <ELECTRONICALLY SIGNED> By: Alex Ayala MD, FACC 02/24/21829 9 9 Alex Ayala MD, FACC /INF
[2021-02-24 09:46] VITALS: BP 158/63
--- NOTE | 2021-02-24 09:49 | NUR ---
REPORT TO 3W NURSE CALDERON. PT TRANSPORTED BACK TO 350 PER RN. VSS. PT TOLERATED ROCIO WELL. AWAKE AND ALERT
[2021-02-24 11:48] VITALS: BP 155/59
--- NOTE | 2021-02-24 12:48 | NUR ---
DISCHARGE NOTE: ARASH reviewed chart and spoke with nursing and attending physician. Pt is medically stable for discharge to [facility] today. Pt to have ROCIO today. ARASH spoke with [facility] rn rehabilitation, who confirms they are able to accept pt today. ARASH met with pt and son at bedside to discuss plan to d/c to [facility]. Both are aware and agreeable with plan. COVID test ordered to be done this afternoon. Pt will move to 5[facility] after results are available. ARASH provided pt/son with healthcare DPOA forms per their request. Encouraged pt and son to complete forms and notify staff for the form to be witnessed and notarized. Pt/son verbalized understanding. Rehab CM to follow and assist as needed with discharge planning.
[2021-02-24] MEDS ORDERED: NORVASC10 MG PO (12:50)
[2021-02-24] MEDS ORDERED: METFORMIN HCL500 MG PO (12:50)
[2021-02-24] MEDS ORDERED: TRADJENTA5 MG PO (12:50)
--- NOTE | 2021-02-24 15:24 | NUR ---
RN ASSUMED PT'S CARE AT 0700AM, PT IS A&OX4, PT'S VS ARE STABLE, BUT PT 'S SPEACH STILL IS SLURRED, AND PT 'S BLE IS WEAK, PT IS TOLERATIVE TRANSESOPHAGEAL ECHOCARDIOGRAM TEAST TODAY, PT DENIES PAIN AND N/V , RN RECEIVED ORDER PT DC TO [facility] REHAB UNIT , RN HAS GIVING REPORT, 3W STAFF WILL SEND PT TO 5N SOON.
--- NOTE | 2021-02-26 19:42 | HC ---
[facility] [place] [address] CONSULTATION Name: TACO RED Fuentes Room #: 350-P [facility] IN ..#: [id number] Admission: 02/22/21 Attend Phys: Rj Olivo MD Discharge: 02/24/21 Date of : 40 Report #: [id number] THIS REPORT FOR: cc: Mor Kaiser Bradley L. DO Khosla, Parveen K. MD ~ DATE OF SERVICE: 02/22/2021 HISTORY OF PRESENT ILLNESS: An 80-year-old female patient who was seen by me for a stroke. The patient was discussed with the Emergency Room physicians and it looks like this patient woke up this morning with slurred speech. She also noticed difficulty with ambulation. The patient says she lost her and the daughter earlier this year and she was depressed. She stopped taking all her antihypertensives 2 weeks ago. When I asked her whether it was because of financial reasons or she ran out of the medication, she said no, I just stopped taking it. It is not because of depression or any suicidal ideation, according to her. The symptom is continuous and her blood pressure was pretty high when she came in here. It is not certain whether she was taking her antithrombotic therapy. She was here for stroke in September, I reviewed those records. She was seen by Dr. De Leon for neurological care at that time. REVIEW OF SYSTEMS: A 14-point review of system is positive for hypertension and she was markedly hypertensive here because she has stopped taking her medications about 2 weeks ago. She also has a pretty markedly dysarthric speech. She had a stroke in September. She has a history of diabetes. She has cardiology issues, but she does not know what they are. She follow up with Dr. Wright. She does have a history of depression and anxiety. This was a relevant 14-point review of systems. She did not complain of any eye, ENT, cardiac, respiratory, GI, , musculoskeletal, constitutional, dermatological, hematological, psychiatric, throat, allergic symptom associated with present symptomatology. PAST MEDICAL HISTORY: Positive for stroke in September and she was seen and evaluated by Dr. De Leon and those records were reviewed. FAMILY HISTORY: Unremarkable. SOCIAL HISTORY: She lives with her son. PHYSICAL EXAMINATION: Indicate she is alert, she is responsive. She can tell me what month it is. She could tell me what date it is. Her speech is markedly dysarthric and this is when she woke up this morning. Cranial nerve examination 2 through 12 are mostly looks unremarkable. I do not see any facial weakness. I ____ tell about the visual field, I think we need to do it again because of dysarthria. Her cooperation was not very good. She moves all 4 extremities. Her position sense is intact in the lower extremities. Reflexes could not be [facility] [address] [place] [address] CONSULTATION Name: TACO RED Fuentes Room #: 350-P [facility] IN ..#: [id number] Admission: 02/22/21 Attend Phys: Rj Olivo MD Discharge: 02/24/21 Date of : 40 Report #: [id number] elicited, but she did not relax either. There is no meningeal sign. She did [id number] reasonably well. I could not look at the patient's fundus. Cardiac examinations appear unremarkable. No respiratory difficulty was noticed. She is a well-built individual. There is no edema. Pulses are difficult to tell. The blood pressure now is 136/65 ____ markedly up when she came in, but since then she got labetalol and hydralazine. Pulse is 68, temperature is 97.9. LABORATORY DATA: White count is 8.6. GFR was 53. Her blood sugar is 448. IMAGING STUDIES: I reviewed the films of the patient's MRI and she does have a stroke in the left cerebellum, is not pushing on the ventricle. In fact, it is only moderate sized stroke. It extend into the midbrain, which will correlate with the patient's leg weakness. IMPRESSION: 1. Cerebellar stroke. It is moderate sized stroke and it does not appear to be any pressure on the ventricles or any hydrocephalus. She just need to be watched closely for that. 2. Noncompliance. The patient stopped her all the medications about 2 weeks ago, the patient was advised never to do that again. RECOMMENDATION: She got some hydralazine and labetalol. Her blood pressure is somewhat low compared to what permissive hypertension will require. I am going to start her on some normal saline and will suggest keeping her blood pressure at least around 160 systolic. If it is higher than that, then her home antihypertensive can be started. I do not know what the etiology of the patient's stroke is. She follows up with Dr. Wright and this patient needs to be worked up for any cause of embolization and that probably should be done by the geological technical officer. She can be on a combination of aspirin and Plavix, but I think she needs extensive workup to look for any source of embolization from the heart and I will suggest involving Cardiology in that regard. We will probably do some of the workup as an outpatient. We will put a rehab consult because I suspect she probably has to go to rehab for some time because of the stroke before she goes home, if she is able to go home. Thank you very much for this referral. <ELECTRONICALLY SIGNED> By: Aly Menjivar MD 02/26/21 1942 1837 0010 Aly Menjivar MD /nt
== END 2021-02-24 16:20 | DRG 65 ==
LOC: ER 13:13 → EROBS 15:22 → 3W 15:22
PROVIDERS: Emergency Medicine; Nurse Practitioner; ADMIT Hospitalist; ATTEND Hospitalist
PROC: B24BZZ4 Ultrasonography of Heart with Aorta, Transesophageal (ICD-10-PCS; principal; 2021-02-24)
DX: I63.89 Other cerebral infarction (principal); I67.4 Hypertensive encephalopathy; E46 Unspecified protein-calorie malnutrition; I16.0 Hypertensive urgency; I10 Essential (primary) hypertension; F32.9 Major depressive disorder, single episode, unspecified; F41.9 Anxiety disorder, unspecified; E11.42 Type 2 diabetes mellitus with diabetic polyneuropathy; E78.00 Pure hypercholesterolemia, unspecified; K21.9 Gastro-esophageal reflux disease without esophagitis; E11.65 Type 2 diabetes mellitus with hyperglycemia; E78.5 Hyperlipidemia, unspecified; M48.061 Spinal stenosis, lumbar region without neurogenic claudication; E83.42 Hypomagnesemia; Z20.822 Contact with and (suspected) exposure to COVID-19; R53.81 Other malaise; M19.90 Unspecified osteoarthritis, unspecified site; R47.1 Dysarthria and anarthria; I65.29 Occlusion and stenosis of unspecified carotid artery; Z79.4 Long term (current) use of insulin; Z88.8 Allergy status to other drugs, medicaments and biological substances; Z91.041 Radiographic dye allergy status; Z87.891 Personal history of nicotine dependence; Z91.19 Patient's noncompliance with other medical treatment and regimen; Z79.82 Long term (current) use of aspirin; Z79.899 Other long term (current) drug therapy
CPT/HCPCS: 10879

== ENCOUNTER 2021-02-24 12:21 | Inpatient (IN) | payer OTHER, BC ==
[~2021-02-24] VITALS: Ht 167.6 cm; Wt 66.8 kg
[2021-02-24] MEDS ORDERED: METFORMIN HCL500 MG PO (12:50)
[2021-02-24] MEDS ORDERED: TRADJENTA5 MG PO (12:50)
[2021-02-24] MEDS ORDERED: NORVASC10 MG PO (12:50)
--- NOTE | 2021-02-24 16:30 | NUR ---
NEW ADMISSION FROM [facility]. CAME IN WITH RN ON A WC. PT IS ALERT AND ORIENTATED X 4. PLESANT AND COOPERATIVE. HAS DYSARTHRIA. ABLE TO MAKE NEEDS KNOWN. CVA WITH L SIDED WEAKNESS. IV PERIPHERAL SALINE LOCK IN R FA. UP WITH WALKER TO CHAIR. DENIES ANY PAIN, SHORT OF AIR, OR CHEST PAIN. ACCUCHECKS DONE, METFORMIN GIVEN. REDNESS WITH NO SKIN BREAKDOWN TO SACRAL, Z GUARD APPLIED. VSS WITH HR BRADYCARDIA. CALL LIGHT WITHIN REACH. ROOM ORIENTATION GIVEN. ALL QUESTIONS AND CONCERNS ADDRESSED AND ANSWERED.
[2021-02-24 16:44] VITALS: BP 128/52
[2021-02-24 19:24] VITALS: BP 146/61
--- NOTE | 2021-02-25 04:40 | NUR ---
ASSUMED CARE AT 1900 OF 02/24. PATIENT IS A&OX4, DENIES PAIN OR SOB. ALL ORAL MEDICATIONS WERE ADMINISTERED, PATIENT TOLERATED TAKING PILLS ONE AT A TIME WITH THIN LIQUIDS. SCHEDULED INSULIN GLARGINE WAS HELD, PER DEALER CARD ROOM KENDRICK, DUE TO PATIENT BG BEING 93 AT HS. PATIENT CONSENTED TO THIS. ASSIST OF 1 WITH GB AND WALKER WITH TRANSFERS AND AMBULATION. PATIENT REFUSED TO PUT SCD'S ON, EDUCATION ABOUT BENEFITS OF SCD'S PROVIDED, AND COMPREHENSION EXPRESSED BY PATIENT. APPEARS TO BE SLEEPING DURING HOURLY ROUNDS,WILL CONTINUE TO MONITOR.
[2021-02-25 05:49] LABS: HEMATOCRIT 33.3 % (37.0-47.0); HEMOGLOBIN 11.3 gm/dL (12.0-15.0); MCH 31.5 pg (26.0-34.0); MCHC 33.9 g/dL (28.0-37.0); MCV 92.9 fL (80.0-100.0); RBC 3.59 mil/uL (4.20-5.00); RDW 13.4 % (10.5-14.5); WBC 7.6 thou/uL (4.0-11.0)
[2021-02-25 05:57] LABS: CALCIUM 8.4 mg/dL (8.5-10.1); CREATININE 0.9 mg/dL (0.6-1.0); POTASSIUM 3.5 mmol/L (3.5-5.1)
[2021-02-25 07:15] LABS: FOLIC ACID 15.4 ng/mL (8.6-58.9)
--- NOTE | 2021-02-25 10:51 | NUR ---
ASSUMED CARE AT 0700. PATIENT IS ALERT AND ORIENTED X4. PATIENT HAS RIGHT SIDED WEAKNESS. LUNGS ARE CLEAR. ABD IS SOFT WITH BSX4. PATIENT IS UP WITH 1 STAFF AND GAIT BELT TO VOID LEONIDAS COLORED URINE. UP IN THE CHAIR FOR MEALS. PATIENT HAS S.L. WITHOUT REDNESS OR SWELLING. FALL AND SAFETY PROTOCOLS IN PLACE. DENIES PAIN AT THIS TIME. CONTINUES WITH PT/OT/ST EVALS TODAY. WILL CONTINUE TO MONITER.
[2021-02-25 21:05] VITALS: BP 182/73
[2021-02-25 21:55] VITALS: BP 185/78
[2021-02-25 23:39] VITALS: BP 166/68
--- NOTE | 2021-02-26 04:37 | NUR ---
ASSUMED CARE AT 1900 OF 02/25. PATIENT IS A&OX4. DENIES PAIN OR SOB. ASSIST OF 1 WITH GB AND WALKER FOR TRANSFERS AND AMBULATION. BP WAS ELEVATED AT HS, YARDING SUPERVISOR PROVIDER GABRIELA MARKS. WAS CONTACTED AND PRN ORDER FOR HYDRAZALINE RECEIVED FOR SPP >165. BP AT HS WAS 185/78, PATIENT DENIES CHEST PAIN, OR HEADACHE. PRN HYDRAZALINE WAS ADMNISTERED, APPROX. 1 HOUR POST ADMINISTRATION OF PRN HYDRAZALINE BP WAS NOTED TO BE DECREASING TO 166/68. PATIENT APPEARS TO BE SLEEPING DURING HOURLY ROUNDS. WILL CONTINUE TO MONITOR.
--- NOTE | 2021-02-26 10:35 | NUR ---
ASSUMED CARE AT 0700. PATIENT IS ALERT AND ORIENTED X4. PATIENT HAS RIGHT SIDED WEAKNESS. LUNGS ARE CLEAR. ABD IS SOFT WITH BSX4. UP TO THE CHAIR FOR MEALS. VOIDING ABMER COLORED URINE. UP IN THE CHAIR FOR MEALS. CONTINUES TO CALL FOR ASSISTANCE WHEN NEEDED. CALL LIGHT IN REACH. FALL AND SAFETY PROTOCOLS IN PLACE. DENIES PAIN AT THIS TIME. CONTINUES TO PROGRESS SLOWLY TOWARDS D/C GOALS. WILL CONTINUE TO MONITER.
--- NOTE | 2021-02-26 10:38 | NUR ---
S.L. D/C'D. IV SITE WITHOUT REDNESS OR SWELLING. WILL CONTINUE TO MONITER.
[2021-02-26 13:49] VITALS: BP 162/90
[2021-02-26 18:50] VITALS: BP 142/51
--- NOTE | 2021-02-27 04:33 | NUR ---
ASSUMED CARE AT 1900 OF 02/26. PATIENT IS A&OX4. DENIES PAIN OR SOB. ASSIST OF 1 USING GB AND WALKER FOR TRANSFERS AND AMBULATION. PATIENT HAD AN EPISODE OF INCONTINENCE AT HS, AND WAS ABLE TO PERFORM LOWER BODY DRESSING WITH MODERATE ASSIST. BG AT [facility] WAS ELEVATED, BG WAS 188, BUT SHE REPORTS HAVING HAD A SWEET SNACK PRIOR TO HAVING BG CHECKED. DENIES S/S OF HYPERGLYCEMIA. NO CONCERNS AT THIS TIME, WILL CONTINUE TO MONITOR.
[2021-02-27 08:00] VITALS: BP 169/62
--- NOTE | 2021-02-27 12:55 | NUR ---
INITIAL REHAB ASSESSMENT: Pt was admitted to [facility] on February 24. Pt with new CVA. Pt is normally alert/orientated x 4. Pt lives at home with her son, Terrence, his and their dtr. Pt has 24 hour care provided by family. Prior to admission, pt was using a walker for ambulation. Pt has been on [facility] earlier this year due to prior CVA. Pt was discharged home with [facility] on 10/30/2020. Pt's PCP is Dr. Javier Lagunas. This internal communications writer met with pt and son, Terrence, on Saturday, 02/24, prior to discharge from [facility] to [facility]. Pt and son confirm discharge plan is to return home with [facility], if needed. Pt provided with DPOA ppwk for completion. Pt and son are familiar with [facility] therapy and weekly team conferences. Rehab CM to follow and assist as needed with discharge planning.
--- NOTE | 2021-02-27 14:24 | NUR ---
Nutrition: RD received consult stating poor intake. PO documented as 50-100% of meals since admission. Familiar with pt from prior admits. Did have a severe weight loss in 2019 following of . Current weight down 10# or 6% in the past 5 months-not significant and pt reports to RD she was eating well at home also. Noted pt however reported poor appetite to provider. Likes glucerna and drank last admit-pt agrees to glucerna daily. Follow weight trends for accuracy and for continued adequate intake at meals. Place as low risk with interventions in place.
--- NOTE | 2021-02-27 15:02 | NUR ---
ASSUMED PT CARE THIS AM. PT IS UP WITH ASSIST X1 WITH WALKER AND GAITBELT. PT IS ACCUCHECK ACHS. PT IS ON ROOM AIR. PLACED ZGUARD ON BUTTOCK. PT CAN SWALLOW MEDS WHOLE WITH APPLE SAUCE. PT HAS R WEAKNESS. PT TOLERATED MEDICATION AND DIET WELL. NO C/O OF PAIN, NAUSEA AND VOMITING DURING THE SHIFT. PT HAS BEEN WORKING WITH THERAPIES. PT ON THE BED, BED ON THE LOWEST POSITION, SIDE RAILS UP, CALL LIGHT WITHIN REACH. WILL CONTINUE TO MONITOR PT. FOLLOW POC.
[2021-02-27 19:20] VITALS: BP 177/69
--- NOTE | 2021-02-28 02:11 | NUR ---
TURNING SELF IN BED, TOLERATING MEDS WHOLE IN APPLESAUCE, STATES GRAVY TODAY HAS HELPED HER SWALLOW FOOD EASIER. APPRECIATES GABAPENTIN WHICH SHE TAKES REGULARLY FOR CHRONIC PAIN, BUT SHE IS HAVING NO PAIN WHATSOEVER AT THIS TIME.
[2021-02-28 08:00] VITALS: BP 160/58
--- NOTE | 2021-02-28 09:19 | NUR ---
PT SITTING UP IN CHAIR FOR BREAKFAST. PT UP WITH WALKER X1 ASSIST. PT DENIES ANY PAIN AT THIS TIME. PT ENCOURAGED TO USE CALL LIGHT, PT DOES GET IMPULSIVE AT TIMES. PT LUNGS CLEAR AND HAS BOWEL SOUNDS. PT TAKES MEDS WHOLE IN APPLESAUCE. PT DID TAKE MEDS WITHOUT ANY ISSUES WITH WATER THIS AM.
--- NOTE | 2021-02-28 14:02 | NUR ---
Team meeting, serjio tillman in [facility]. De 29th back home with family. CORTEZ alcantar ( pt, ot, st, nursing) Family needs to assist with pills and bills.. Family needs to give her medication. Ot will talk with family about getting bath bench if don't have one already.
[2021-02-28 19:17] VITALS: BP 145/66
--- NOTE | 2021-03-01 01:39 | NUR ---
USING CALL LIGHT TONIGHT TO ASK FOR ASSIST TO TOILET, GAIT BELT, WALKER, AND MINIMAL ASSIST. TAKING MEDS WHOLE IN APPLESAUCE. TURNING SELF IN BED, LOOKS VERY COMFORTABLE LYING ON RIGHT SIDE.
[2021-03-01 07:15] VITALS: BP 150/68
--- NOTE | 2021-03-01 10:38 | NUR ---
ASSUMED CARE AT 0700. PATIENT IS ALERT AND ORIENTED X4. PATIENT HAS RIGHT SIDED WEAKNESS. PATIENT IS UP WITH ASSIST OF 1 STAFF AND GAIT BELT, AND WALKER TO CHAIR FOR MEALS. LUNGS ARE CLEAR, ABD IS SOFT WITH BSX4. UP TO THE BATHROOM TO VOID LEONIDAS COLORED URINE. FALL AND SAFETY PROTOCOLS IN PLACE. DENIES PAIN. CONTINUES TO PROGRESS SLOWLY TOWARDS D/C GOALS. WILL CONTINUE TO MONITER.
[2021-03-01 19:30] VITALS: BP 160/66
--- NOTE | 2021-03-02 04:36 | NUR ---
ASSUMED CARE AT 1900 OF 03/01. PATIENT IS A&OX4, DENIES PAIN AND SOB. STAND BY ASSIST OF 1 FOR TRANSFERS AND AMBULATION, USING WALKER AND GAIT BELT. ABLE TO REPOSITION SELF IN BED. TOLERATED ORAL MEDICATION WHOLE AND ONE AT A TIME, IN APPLE SAUCE. NO CONCERNS AT THIS TIME, WILL CONTINUE TO MONITOR.
[2021-03-02 07:50] VITALS: BP 169/66
--- NOTE | 2021-03-02 13:23 | NUR ---
ASSUMED CARE AT 0700. PATIENT IS ALERT AND ORIENTED X4. PATIENT GUAJARDO'S, STEWARD/STEWARDESS CHIEF CARGO VESSEL ARE WEAK NO THE RIGHT. LUNGS ARE CLEAR AND DEMINISHED. ABD IS SOFT WITH BSX4. UP TO THE BATHROOM WITH GAIT BELT AND WALKER TO VOID LEONIDAS COLORED URINE. UP IN THE CHAIR FOR MEALS. FALL AND SAFETY PROTOCOLS IN PLACE. DENIES PAIN AT THIS TIME. CONTINUES TD PROGRESS SLOWLY TOWARDS D/C GOALS. WILL CONTINUE TO MONITER.
[2021-03-02 19:34] VITALS: BP 154/71
--- NOTE | 2021-03-03 05:20 | NUR ---
ASSUMED CARE AT 1900 OF 03/02. PATIENT IS A&OX4, W/ NOTED FORGRTFULLNESS. DENIES PAIN OR SOB. MINIMAL ASSIST OF 1 USING GB AND WALKER FOR TRANSFERS AND AMBULATION TO BATHROOM. TOLERATED ORAL MEDICATIONS WHOLE IN APPLE SAUCE. ABLE TO REPOSITION SELF IN BED. MODERATE ASSIST WITH ADLS AND TOILETING. NO COCNERNS AT THIS TIME, WILL CONTINUE TO MONITOR.
[2021-03-03 07:44] VITALS: BP 149/70
--- NOTE | 2021-03-03 09:07 | NUR ---
PT WORKING WITH THERAPY AT THIS TIME. PT ABLE TO GET UP WITH STAND-BY ASSIST. PT DENIES ANY PAIN. PT TOOK MEDS WHOLE WITH APPLE SAUCE. PT LUNGS CLEAR. LBM 03/03. PT UP WITH WALKER. PT SITTING IN CHAIR AT THIS TIME.
--- NOTE | 2021-03-03 16:49 | NUR ---
Chart review, cont dcp as needed.
[2021-03-03 19:49] VITALS: BP 148/67
--- NOTE | 2021-03-04 01:59 | NUR ---
PT ASSESSMENT COMPLETED AND VSS. MEDS GIVEN ORDERED AND WELL TOLERATED. FALL PRECAUTIONS IN PLACE. ASST WITH REPOSITION FOR COMFORT. PT DENIES NEEDS. SLEEPING WELL. WILL CONTINUE TO MONITOR FREQUENTLY.
[2021-03-04 08:00] VITALS: BP 154/62
[2021-03-04 09:09] LABS: ABSOLUTE NEUTROPHILS 4.3 thou/uL (1.4-8.2); BASOPHILS 1.1 % (0.0-2.0); EOSINOPHILS 5.4 % (0.0-3.0); HEMATOCRIT 37.5 % (37.0-47.0); HEMOGLOBIN 12.3 gm/dL (12.0-15.0); LYMPHOCYTES 30.3 % (24.0-44.0); MCH 30.5 pg (26.0-34.0); MCHC 32.7 g/dL (28.0-37.0); MCV 93.2 fL (80.0-100.0); MONOCYTES 7.7 % (1.0-8.0); PLATELET COUNT 218 thou/uL (150-400); POLYS 55.5 % (36.0-66.0); RBC 4.02 mil/uL (4.20-5.00); RDW 13.3 % (10.5-14.5); WBC 7.8 thou/uL (4.0-11.0)
[2021-03-04 09:32] LABS: CALCIUM 9.4 mg/dL (8.5-10.1); CREATININE 0.9 mg/dL (0.6-1.0); MAGNESIUM 1.5 mg/dL (1.8-2.4); POTASSIUM 4.4 mmol/L (3.5-5.1)
--- NOTE | 2021-03-04 10:20 | NUR ---
ASSUMED CARE AT 0700. PATIENT IS ALERT AND ORIENTED X4. PATIENT HAS RIGHT SIDED WEAKNESS. LUNGS ARE CLEAR. ABD IS SOFT WITH BSX4. UP IN THE CHAIR FOR MEALS. FALL AND SAFETY PROTOCOLS IN PLACE. DENIES PAIN AT THIS TIME. CONTINUES TO PROGRESS TOWARDS D/C GOALS. WILL CONTINUE TO MONITER.
[2021-03-04 19:23] VITALS: BP 147/65
--- NOTE | 2021-03-05 00:37 | NUR ---
PT ASSESSMENT COMPLETED AND VSS. MEDS GIVEN ORDERED AND WELL TOLERATED. FALL PRECAUTIONS IN PLACE. UP TO THE BATHROOM WITH ASST/GAIT/WALKER. STEADY. VOIDING MODERATE AMOUNT OF YELLOW URINE. ASST WITH REPOSITION FOR COMFORT. SLEEPING WELL. WILL CONTINUE TO MONITOR FREQUENTLY.
[2021-03-05 07:15] VITALS: BP 137/57
--- NOTE | 2021-03-05 09:15 | NUR ---
PT SITTING UP IN CHAIR THIS AM WITH EYES CLOSED. PT DIDN'T HAVE A GOAL TODAY. PT LUNGS CLEAR. LBM 03/05. PT TAKES MEDS WHOLE IN APPLESAUCE. PT USES WALKER TO AMBULATE. PT TOLERATING DIET. PT DID SAY SHE WAS NOT TAKING HER MEDS AT HOME LIKE SHE SHOULD AND THATS WHY SHE IS HERE, ESPECIALLY HER DIEBETES WAS NOT CONTROLED AT HOME.
--- NOTE | 2021-03-05 17:40 | NUR ---
PT SAT UP IN CHAIR MOST OF THE DAY. PT SON CAME TO VISIT. PT DID HAVE SOME BAKED CHIPS FOR SNACK TODAY.
[2021-03-05 19:20] VITALS: BP 132/63
--- NOTE | 2021-03-06 01:05 | NUR ---
ASSUMED CARE AT 1900 OF 03/05. PATIENT IS A&OX4, DENIES PAIN OR SOB. STAND BY ASSIST USING GB AND WALKER FOR TRANSFERS AND AMBULATION. TOLERATED MEDICATIONS WHOLE IN APPLE SAUCE. BG AT HS WAS 68, PATIENT DENIED ANY S/S OF HYPOGLYCEMIA AND OFFERED SNACKS. PATIENT CONSUMED A VARIETY OF SNACKS. BG RECHECK AFTER ABOUT 1 HOUR BG HAS COME UP TO 139. PATIENT IS ABLE TO REPOSITION SELF IN BED. WILL CONTINUE TO MONITOR.
[2021-03-06 07:15] VITALS: BP 132/65
--- NOTE | 2021-03-06 09:11 | NUR ---
Phone call from her son, he stated they wanting to do dpoa r/t having to be able to assist her with her house, has a court date on 03/09/21 with [facility]. Maicol education that we can do health dpoa but do not do financial, He stated he understands, just needs dpoa paperwork notarized. Maicol went and visited with Jennifer at bedside, she was up in recliner chair. A & o x 3, pleasant and able to make her needs known Cm left dpoa booklet with her, so if her son visits, they can complete the form. Will cont. following as needed for dc needs.
--- NOTE | 2021-03-06 10:15 | NUR ---
ASSUMED CARE AT 0700. PATIENT IS ALERT AND ORIENTED X4. PATIENT HAS RIGHT SIDED WEAKNESS. PATIENT IS UP IN CHAIR FOR MEALS. LUNGS ARE CLEAR, ABD IS SOFT WITH BSX4. ABD IS SOFT WITH BSX4. UP TO THE BATHROOM WITH ASSIST OF 1 STAFF AND GAIT BELT TO VOID LEONIDAS COLORED URINE. FALL AND SAFETY PROTOCOLS IN PLACE. DENIES PAIN AT THIS TIME. CONTINUES TO PROGRESS TOWARDS D/C GOALS. WILL CONTINUE TO MONITER.
--- NOTE | 2021-03-06 11:18 | NUR ---
Nutrition: at follow up pt intake avg >75%, 100% most Glucerna sent daily. BG 68-185. Last BM 03/05. Meds reviewed. Recent BMP reviewed. Pt does not have a recent wt. Pt continues at low nutrition risk, but recommend obtain/record pt current wt.
[2021-03-06 19:20] VITALS: BP 144/63
--- NOTE | 2021-03-07 02:20 | NUR ---
ASSUMED CARE AT 1900 OF 03/06. PATIENT IS A&OX4, W/ INTEMITENT FORGETFULNESS. STAND BY ASSIST USING GB AND WALKER FOR TRANSFERS AND AMBULATION TO BATHROOM TO VOID. ABLE TO PERFORM ADLS BEFORE BED WITH MINIMAL ASSIST. TOLERATED ALL ORAL MEDS WHOLE IN APPLE SAUCE. ABLE TO REPOSITION SELFT IN BED. APPEARS TO BE SLEEPING DURING HOURLY ROUNDS. WILL CONTINUE TO MONITOR.
[2021-03-07 07:15] VITALS: BP 160/71
--- NOTE | 2021-03-07 08:58 | NUR ---
ASSUMED CARE AT 0700. PATIENT IS ALERT AND ORIENTED X4. PATIENT HAS RIGHT SIDED WEAKNESS. LUNGS ARE CLEAR AND DEMINISHED. ABD IS SOFT WITH BSX4. UP TO THE BATHROOM WITH ASSIST OF 1 STAFF TO VOID LEONIDAS COLORED URINE. UP TO THE DINING ROOM FOR MEALS. FALL AND SAFETY PROTOCOLS IN PLACE. DENIES PAIN AT THIS TIME. CONINUES TO PROGRESS TOWARDS D/C GOALS. WILL CONTINUE TO MONITER.
--- NOTE | 2021-03-07 13:17 | NUR ---
team meeting, cont. with dc on [facility] ( pt, ot, st, and nursing). Needs assist with bills and pills. no driving. Son can pick her after court date on . Will need supervison for self cares.
[2021-03-07 19:53] VITALS: BP 163/71
--- NOTE | 2021-03-08 00:13 | NUR ---
PT ASSESSMENT COMPLETED AND VSS. MEDS GIVEN ORDERED AND WELL TOLERATED. FALL PRECAUTIONS IN PLACE. UP TO THE BATHROOM WITH ASST/GAIT/WALKER. STEADY. PT SLEEPING WELL. DENIES NEEDS. WILL CONTINUE TO MONITOR FREQUENTLY.
[2021-03-08 07:29] VITALS: BP 194/74
--- NOTE | 2021-03-08 08:58 | NUR ---
ASSUMED CARE AT 0700. PATIENT IS ALERT AND ORIENTED X4. PATIENT GUAJARDO'S, BUT HAS RIGHT SIDED WEAKNESS. LUNGS ARE CLEAR AND DEMINISHED. ABD IS SOFT WITH BSX4. UP IN THE CHAIR FOR MEALS. UP TO THE BATHROOM WITH GAIT BELT AND WALKER TO VOID LEONIDAS COLORED URINE. UP IN THE CHAIR FOR MEALS. FALL AND SAFETY PROTOCOLS IN PLACE. DENIES PAIN AT THIS TIME. CONTINUES TO PROGRESS TOWARDS D/C GOALS. WILL CONTINUE TO MONITER.
--- NOTE | 2021-03-08 12:19 | NUR ---
Jennifer and son lorna agrees with dcp. [facility] ( pt, ot, st, nursing). Jennifer will cont to lives with her son lorna and stepdaughter will be at home during day to assist jennifer if needed per son lorna. No driving, assist with bills and pills. Son will pick her up around 4pm on . Will cont following as needed for dc needs.
--- NOTE | 2021-03-08 12:23 | NUR ---
FAXED HOME HEALTH REFERRAL TO [facility]. SPOKE TO ANIKA/HANNAH THAT THE PATIENT WAS DISCHARGING TOMORROW, 03/09/21 AND THEY DO PROVIDE SERVICES IN [place], [place]. WILL CONFIRM THEY RECEIVED AND CAN ACCEPT. [facility] P [phone]; FAX [phone]
[2021-03-08 13:43] VITALS: BP 174/84
[2021-03-08 14:39] LABS: CALCIUM 9.2 mg/dL (8.5-10.1); CREATININE 1.2 mg/dL (0.6-1.0); POTASSIUM 4.3 mmol/L (3.5-5.1)
[2021-03-08 16:41] VITALS: BP 157/56
[2021-03-08 19:14] VITALS: BP 133/65
--- NOTE | 2021-03-09 03:24 | NUR ---
ASSUMED CARE AT 1900 OF 03/08. PATIENT IS A&OX4, DENIES PAIN OR SOB. STAND BY ASSIST OF 1 USING GB AND WALKER FOR TRANSFERS AND AMBULATION TO TOILET. TOLERATED ORAL MEDS WHOLE IN APPLE SAUCE. BG AT HS WAS 76, PATIENT DENIES S/S OF HYPOGLYCEMIA. HAD SNACKS BEFORE GOING TO SLEEP. NO CONCERNS AT THIS TIME, WILL CONTINUE TO MONITOR.
[2021-03-09 07:40] VITALS: BP 130/64
[2021-03-09 09:38] VITALS: BP 130/64
--- NOTE | 2021-03-09 09:38 | NUR ---
PT SITTING UP IN THE CHAIR AT THIS TIME. PT WANTING TO GO THROUGH HER CLOTHES AND FOLD THEM. PT LUNGS CLEAR. PT UP WITH WALKER AND STAND-BY ASSIST. PT DENIES ANY PAIN. PT GOING HOME TODAY. PT WANTS A LIST OF MEDS WHEN D/C AND WHAT THEY ARE AND WHAT THEY DO. PT UNDERSTANDS ABOUT IMPORTANCE OF TAKING HER MEDICATION THIS TIME SO SHE DOESN'T END UP HERE.
[2021-03-09] MEDS ORDERED: ZESTRIL40 MG PO (12:52)
[2021-03-09] MEDS ORDERED: HYDRALAZINE 10M10 MG PO (12:52)
[2021-03-09] MEDS ORDERED: HYDROCHLOROTHIA25 M1 PO (12:54)
--- NOTE | 2021-03-09 13:00 | NUR ---
FAXED DISCHARGE ORDERS, SUMMARY AND NEGATIVE COVID RESULT (02/24/21) TO ANIKA/HANNAH AT [facility]. WILL CONFIRM THEY RECEIVED AND DATE THEY WILL SCHEDULE TO BEGIN SERVICES. [facility] P [phone] FAX [phone]
[2021-03-09] MEDS ORDERED: METFORMIN HCL500 MG PO (18:20)
--- NOTE | 2021-03-09 18:35 | NUR ---
DC ORDERS CLARIFIED WITH DR. OH, AND PT WHEELED SELF TO ELEVATOR WITH SUPERVISION, AND TRANSFERRED TO THE CAR WITH SUPERVISION ASSIST.
--- NOTE | 2021-03-12 08:54 | HC ---
[facility] [place] [address] CONSULTATION Name: TACO RED Room #: 505-P [facility] IN .R.#: [id number] Admission: 02/24/21 Attend Phys: Westley Rivera MD Discharge: 03/09/21 Date of : 40 Report #: [id number] THIS REPORT FOR: cc: Mor Kaiser Bradley L. DO Deutch, Neal B. PhD ~ DATE OF SERVICE: 03/05/2021 NEUROBEHAVIORAL STATUS EXAM ATTENDING PHYSICIAN: Westley Rivera M.D. SEWING MACHINE MECHANIC: Ryan Sheth, PhD. CLINICAL PRESENTATION: The patient is an 80-year-old female admitted to the hospital, [facility], with an acute onset of slurred speech. She had an elevated blood pressure that was greater than 200. An MRI confirmed an acute left cerebellar and midbrain CVA. The patient is reported to have discontinued her medications 2 weeks prior to her hospitalization. She does have a history of CVA in October 2020 where she was admitted and discharged home. 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 A complete description of her medical condition and history along with medications can be found in her medical record. Neuropsychological consultation was requested to provide assistance in the assessment of cognitive and emotional status and to provide recommendations and services. Prior to this most recent admission, the patient reports having been living with her son. The patient has had numerous losses including the deaths of one son in 1987 and her daughter and spouse in 2018. Last grade completed is 11th. She was primarily a homemaker throughout her life. TECHNIQUES UTILIZED: Clinical interview, review of medical records, staff consultation and behavioral observations, mini mental status exam 2 standard version and the clock drawing. EXAMINATION FINDINGS: The patient was alert and cooperative with the assessment. She accurately described the reason for her hospitalization. She does not present with aphasia. Her thoughts are logical and goal oriented. There is no evidence of thought disorder. She describes her symptoms to include inconsistent sleep, reduced appetite, subjective anxiety and depression. Driving had been discontinued. She has had difficulty with managing her medication. [facility] [address] [place] [address] CONSULTATION Name: TACO RED Fuentes Room #: 505-P [facility] IN M.R.#: [id number] Admission: 02/24/21 Attend Phys: Westley Rivera MD Discharge: 03/09/21 Date of : 40 Report #: [id number] Her performance on the MMSE 2 brief version is extremely low with a raw score of 8/16. She was 3/3 for initial registration, 1/5 for orientation to time, 4/[address], and 0/3 for immediate recall of 3 items after a brief time delay and distraction. Performance on the MMSE 2 standard version was 16/30, which is extremely low. She was 0/5 for serial sevens, 2/2 for naming, 1/1 for repetition, 3/3 for auditory comprehension. She could read and follow a single command and write a sentence. She was unable to copy a simple geometric design. The patient was unable to draw a clock, set the hands at a designated time, and place numbers within the clock. She is presenting with severe deficits in cognition. Impairment is suggested in memory, concentration, visual spatial organization and executive functioning. Additional symptoms of anxiety and depression are also noted for which she is being treated. 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 Unspecified anxiety disorder with depression. RECOMMENDATIONS: The patient will require assistance in the management of medication finances and nutrition. Deficits in executive functioning place her at increased safety risk. Continued speech therapy will be helpful for the development of compensatory strategies. Family education will likely be necessary for her son to clarify for him the severity of her deficits and the extent of assistance that will be needed. Thank you very much for allowing me to provide the consultation on this patient. <ELECTRONICALLY SIGNED> By: Ryan Sheth, PhD 03/12/21 [id number] Ryan Sheth, PhD /nt
--- NOTE | 2021-03-13 08:38 | PLAN ---
[facility] [place] [address] REHAB UNIT PLAN OF CARE Name: TACO RED Room #: 505-P [facility] IN .R.#: [id number] Admission: 02/24/21 Attend Phys: Westley Rivera MD Discharge: 03/09/21 Date of : 40 Report #: [id number] THIS REPORT FOR: cc: Mor Kaiser Bradley L. DO Smithson, David G. MD ~ DATE OF SERVICE: 02/27/2021 PROGRESS NOTE AND OVERALL PLAN OF CARE HISTORY OF PRESENT ILLNESS: The patient was seen on the acute inpatient rehabilitation hernandez. She was in no distress. Temperature 97.7, pulse 65, respirations 18, blood pressure 162/90. Chest sounded clear to auscultation. Cardiac; regular rate and rhythm. Abdomen; bowel sounds positive, nontender. Genitourinary; rectal examination deferred. She has functional range of motion of both upper extremities, strength is probably a grade 4-/5. She was able to do [id number] reasonably well with her left upper extremity. Functionally, she has been working in therapies with transfers, min assist; gait, min assist in the room with the front-wheeled walker. In occupational therapy, lower body dressing is max assist, upper body dressing was noted to be max assist as well. In speech she is noted to have moderate cognitive deficits with severe memory deficits. She is on a mechanical soft, thin liquid diet. ASSESSMENT: 1. Left cerebellar and midbrain cerebrovascular accident. 2. Dysarthria. 3. History of right parietal and cerebellar cerebrovascular accident on 10/2020. 4. Type 2 diabetes mellitus with elevated hemoglobin A1c. 5. ____ peripheral neuropathy. 6. Carotid artery stenosis. 7. Hypertension. 8. Degenerative arthritis. PLAN: The overall plan of care is based on the pre-admit screen and information garnered from therapy assessments. 1. Estimated length of stay is probably around 10-14 days or potentially longer as warranted. 2. Medical prognosis is reasonably good. 3. Anticipated interventions includes the interdisciplinary acute inpatient rehabilitation program. 4. Anticipated functional outcomes would be for the patient to improve as far as transfers, functional mobility and ADLs as well as communication so that she can hopefully return back to the prior living situation. 5. Discharge destination would be back to the home setting where she lives with her son and [id number]. [place] [address] REHAB UNIT PLAN OF CARE Name: TACO RED Room #: 505-P [facility] IN [facility].#: [id number] Admission: 02/24/21 Attend Phys: Westley Rivera MD Discharge: 03/09/21 Date of : 40 Report #: [id number] 6. Expected therapy by discipline includes PT, OT and speech 1 hour per day each 5 days a week throughout the duration of the acute inpatient rehabilitation stay. <ELECTRONICALLY SIGNED> By: Westley Rivera MD 03/13/21 0838 [id number] 20 Westley Rivera MD /nt
== END 2021-03-09 18:35 | disposition home health service (06) | DRG 66 ==
PROVIDERS: Nurse Practitioner; Nurse Practitioner Family; ADMIT Physical Medicine & Rehabilitation; ATTEND Physical Medicine & Rehabilitation
DX: I63.9 Cerebral infarction, unspecified (principal); I69.322 Dysarthria following cerebral infarction; I10 Essential (primary) hypertension; M19.90 Unspecified osteoarthritis, unspecified site; E78.00 Pure hypercholesterolemia, unspecified; K58.9 Irritable bowel syndrome, unspecified; E11.42 Type 2 diabetes mellitus with diabetic polyneuropathy; F03.90 Unspecified dementia, unspecified severity, without behavioral disturbance, psychotic disturbance, mood disturbance, and anxiety; F41.8 Other specified anxiety disorders; K21.9 Gastro-esophageal reflux disease without esophagitis; I16.0 Hypertensive urgency; M48.061 Spinal stenosis, lumbar region without neurogenic claudication; Z91.81 History of falling; Z88.8 Allergy status to other drugs, medicaments and biological substances; Z91.041 Radiographic dye allergy status; Z79.899 Other long term (current) drug therapy; Z79.82 Long term (current) use of aspirin; Z79.4 Long term (current) use of insulin; Z87.891 Personal history of nicotine dependence
CPT/HCPCS: 10112